=== PATIENT | male | born 1980 | race Caucasian/White ===

== ENCOUNTER 2023-09-17 15:18 | Inpatient (IN) | payer OTHER, SELFPAY ==
[2023-09-17 15:21] VITALS: BP 180/85; PULSE 82; RESP 22; TEMP 36.9; O2SAT 97; BMI 74.8
--- NOTE | 2023-09-17 15:33 | US_ITS ---
The [address] [address] Patient Name: AMENA LAYTON MRN: [id number] date: 1980 Sex: M Assigned Patient Location: ER Current Patient Location: ER Accession/Order Number: [id number] Exam Date: 09/17/2023 16:00 Report Date: 09/17/2023 16:49 At the request of: YORDY BARAHONA Procedure: US scrotum doppler EXAM: US scrotum doppler HISTORY: Swelling, left side COMPARISON: None. TECHNIQUE: Scrotal ultrasound was performed, utilizing grayscale, color, and spectral Doppler. FINDINGS: RIGHT: Testis size: 4.3 x 3 x 2.4 cm. Testis morphology: Homogeneous appearance. No mass. There is a 1 cm anechoic cystic structure inferior to the right testicle. Testis flow: Normal testicular color and spectral Doppler. Flow is symmetric with the contralateral testis. Epididymis: Normal size and morphology. Epididymis flow: Normal epididymal flow. Symmetric flow compared to contralateral epididymis. Scrotal sac: No hydrocele. Varicocele: None. LEFT: Testis size: 4 x 2.3 x 2.4 cm. Testis morphology: Homogeneous appearance. No mass. Testis flow: Normal testicular color and spectral Doppler. Flow is symmetric with the contralateral testis. Epididymis: Normal size and morphology. Epididymis flow: Normal epididymal flow. Symmetric flow compared to contralateral epididymis. Scrotal sac: No hydrocele. Varicocele: None. Additional findings: Thickened and edematous scrotum bilaterally. No gas is noted in subcutaneous region. US/US scrotum doppler IMPRESSION: No evidence of torsion as on the examination.Thickened and edematous scrotum bilaterally Electronically authenticated by: TELLY POWELL Date: 09/17/2023 16:49
--- NOTE | 2023-09-17 15:33 | ED.MALEGU1 ---
HPI - Male Genitourinary General Chief complaint: Urogenital-Male Stated complaint: Testicular Swelling/Pain Time Seen by Provider: 09/17/23 15:23 Source: patient Mode of arrival: walk-in History of Present Illness HPI Narrative: 42-year-old male presents for left hemiscrotal swelling. It started yesterday morning and has gotten worse over time. There is been no trauma. No dysuria or hematuria. He has chronic lymphedema in his legs but has never had swelling in the scrotum. The right side is not painful or swollen. Related Data Home Medications Medication Instructions Recorded Confirmed carvedilol 6.25 mg tablet 6.25 mg PO BID 09/17/23 09/17/23 celecoxib 100 mg capsule 100 mg PO .QOtherDay 09/17/23 09/17/23 Allergies Allergy/AdvReac Type Severity Reaction Status Date / Time No Known Drug Allergies Allergy Verified 09/17/23 15:25 Review of Systems ROS Narrative A ten point review of systems is negative except as noted above. Exam Narrative Exam Narrative: Nurses note and vital signs reviewed and patient is not hypoxic. General: The patient appears well and in no apparent distress. Patient is resting comfortably on cart. Skin: Warm, dry, no pallor noted. There is no rash noted. Head: Normocephalic, atraumatic Eye: Normal conjunctiva, no drainage Ears, Nose, Mouth, and Throat: oral mucosa is moist. Nares patent. Cardiovascular: Regular Rate and Rhythm Respiratory: Patient is in no distress, no accessory muscle use, lungs are clear to auscultation, no wheezing, rales or rhonchi Back: non-tender, no CVA tenderness bilaterally to percussion. GI: Abdomen is morbidly obese, not apparently tender : Left hemiscrotum is swollen and mildly tender in the scrotum is erythematous. No open area or drainage. Musculoskeletal: Lower extremities have chronic lymphedema Neurological: A&O, normal speech Psychiatric: Cooperative Constitutional Vital Signs, click to edit/add: Last Vital Signs Temp 98.5 F 09/17/23 15:21 Pulse 67 09/17/23 17:00 Resp 22 09/17/23 17:00 BP 162/65 H 09/17/23 17:00 Pulse Ox 98 09/17/23 17:00 Course Vital Signs Vital signs: Vital Signs Temperature 98.5 F 09/17/23 15:21 Pulse Rate 82 09/17/23 15:21 Respiratory Rate 22 09/17/23 15:21 Blood Pressure 180/85 H 09/17/23 15:21 Pulse Oximetry 97 09/17/23 15:21 Temperature 98.5 F 09/17/23 15:21 Pulse Rate 67 09/17/23 17:00 Respiratory Rate 22 09/17/23 17:00 Blood Pressure 162/65 H 09/17/23 17:00 Pulse Oximetry 98 09/17/23 17:00 MDM - Male Genitourinary MDM Narrative Medical decision making narrative: Scrotal ultrasound shows normal testicles but thickened scrotal wall. My clinical impression is that he has scrotal cellulitis. He does not have any clinical manifestations of Grazyna's gangrene. He is given IV Zosyn and vancomycin and is being admitted. Findings are discussed with the patient. Differential Diagnosis Differential diagnosis: Likely epididymitis, prostatitis, inguinal hernia and other (Cellulitis, Grazyna's gangrene) Lab Data Attestation: I reviewed the patient's lab results. Labs: Lab Results 09/17/23 Range/Units 16:00 WBC 4.2 (4.0-11.0) 10^3/uL RBC 4.03 L (4.70-6.10) 10^6/uL Hgb 12.5 L (14.0-18.0) g/dL Hct 38.2 L (42.0-54.0) % MCV 94.8 H (80.0-94.0) fL MCH 31.0 (25.9-34.0) pg MCHC 32.7 (29.9-35.2) g/dL RDW 13.2 (11.0-15.0) % Plt Count 65 L (150-450) 10^3/uL MPV 11.1 (9.5-13.5) fL Seg Neuts % (Manual) 74.0 Lymphocytes % (Manual) 12.0 L (20.5-60.0) % Monocytes % (Manual) 10.0 (1.7-12.0) % Eosinophils % (Manual) 3.0 (0.9-7.0) % Basophils % (Manual) 1.0 (0.2-2.0) % Neutrophils # (Manual) 3.10 (1.4-6.5) 10^3/uL Lymphocytes # (Manual) 0.50 L (1.20-3.80) 10^3/uL Monocytes # (Manual) 0.42 (0.30-0.80) 10^3/uL Eosinophils # (Manual) 0.12 (0.00-0.70) 10^3/uL Basophils # (Manual) 0.04 (0.00-0.10) 10^3/uL Sodium 142 (136-145) mmol/L Potassium 3.9 (3.5-5.1) mmol/L Chloride 106 (98-107) mmol/L Carbon Dioxide 29.3 (21.0-32.0) mmol/L Anion Gap 10.6 BUN 7.0 (7.0-18.0) mg/dL Creatinine 0.91 (0.70-1.30) mg/dL Est GFR ( Amer) >60 (>=60) Est GFR (Non-Af Amer) >60 (>=60) BUN/Creatinine Ratio 7.7 Glucose 114 H (74-106) mg/dL Lactate 1.2 (0.4-2.0) mmol/L Calcium 8.5 (8.5-10.1) mg/dL Procalcitonin <0.05 (0.00-0.50) ng/mL Imaging Data Scrotal ultrasound: Radiologist's impression: ITS Impressions Scrotum Ultrasound 09/17/23 15:33 IMPRESSION: No evidence of torsion as on the examination.Thickened and edematous scrotum bilaterally Electronically authenticated by: TELLY POWELL Date: 09/17/2023 16:49 Discharge Plan Discharge Chief Complaint: Urogenital-Male Clinical Impression: Cellulitis, scrotum Patient Disposition: Admitted As Inpatient Time of Disposition Decision: 17:09 Condition: Good Prescriptions / Home Meds: No Action carvedilol 6.25 mg tablet 6.25 mg PO BID celecoxib 100 mg capsule 100 mg PO .QOtherDay Referrals: Physician,Non-Staff, MD [Primary Care Provider] - 1 week
[2023-09-17 16:09] LABS: Hematocrit 38.2 % (42.0-54.0); Hemoglobin 12.5 g/dL (14.0-18.0); Mean Corpuscular HGB Conc 32.7 g/dL (29.9-35.2); Mean Corpuscular Volume 94.8 fL (80.0-94.0); Mean Platelet Volume 11.1 fL (9.5-13.5); Platelet Count 65 10^3/uL (150-450); Red Blood Count 4.03 10^6/uL (4.70-6.10); Red Cell Distribution Width 13.2 % (11.0-15.0); White Blood Count 4.2 10^3/uL (4.0-11.0)
[2023-09-17 16:21] LABS: Anion Gap 10.6; BUN Creatinine Ratio 7.7; Calcium 8.5 mg/dL (8.5-10.1); Carbon Dioxide 29.3 mmol/L (21.0-32.0); Chloride 106 mmol/L (98-107); Estimated GFR (African America >60 (>=60); Estimated GFR (Non-African Ame >60 (>=60); Glucose 114 mg/dL (74-106); Potassium 3.9 mmol/L (3.5-5.1); Sodium 142 mmol/L (136-145)
[2023-09-17 16:31] LABS: Basophils Abs Manual 0.04 10^3/uL (0.00-0.10); Eosinophils Absolute Manual 0.12 10^3/uL (0.00-0.70); Monocytes Absolute Manual 0.42 10^3/uL (0.30-0.80)
[2023-09-17 16:53] LABS: Lactate/Lactic Acid 1.2 mmol/L (0.4-2.0)
[2023-09-17 17:00] VITALS: BP 162/65; PULSE 67; RESP 22; O2SAT 98
[2023-09-17 17:05] LABS: PROCALCITONIN <0.05 ng/mL (0.00-0.50)
[2023-09-17] MEDS: PIPERACILLIN SODIUM/TAZOBACTAM 3.375 GM in 0.9 % SODIUM CHLORIDE 50 ML IV (17:06)
[2023-09-17 17:22] LABS: Bilirubin Urine NEGATIVE (NEGATIVE); Blood Urine NEGATIVE (NEGATIVE); Clarity Urine CLEAR (CLEAR); Color Urine YELLOW (YELLOW); Glucose Urine UA NEGATIVE (NEGATIVE); Ketones Urine NEGATIVE (NEGATIVE); Leukocyte Esterase Urine NEGATIVE (NEGATIVE); Nitrite Urine NEGATIVE (NEGATIVE); Protein Urine NEGATIVE (NEG/TRACE); pH Urine 7.5 (5.0-9.0)
[2023-09-17 17:26] LABS: Urine Microscopic Indicated NO
[2023-09-17] MEDS: VANCOMYCIN HCL 2,000 MG in 0.9 % SODIUM CHLORIDE 500 ML 250 MG IV (18:05)
[2023-09-17 18:49] VITALS: BP 154/71; PULSE 72; RESP 20; TEMP 36.9; O2SAT 95; BMI 74.8
[2023-09-17 19:52] VITALS: BP 156/76; PULSE 73; RESP 18; TEMP 36.9; O2SAT 95
[2023-09-17] MEDS: CARVEDILOL 6.25 MG TABLET PO (21:42)
[2023-09-18] MEDS: PIPERACILLIN SODIUM/TAZOBACTAM 3.375 GM in 0.9 % SODIUM CHLORIDE 50 ML IV ×3 (01:44→20:33)
[2023-09-18] MEDS: VANCOMYCIN HCL 2,000 MG in 0.9 % SODIUM CHLORIDE 500 ML 250 MG IV ×2 (02:26→08:39)
[2023-09-18 04:28] VITALS: BP 148/71; PULSE 71; RESP 18; TEMP 36.7; O2SAT 95
[2023-09-18 06:21] LABS: Anion Gap 11.4; BUN Creatinine Ratio 8.3; Calcium 8.6 mg/dL (8.5-10.1); Carbon Dioxide 27.8 mmol/L (21.0-32.0); Chloride 104 mmol/L (98-107); Estimated GFR (African America >60 (>=60); Estimated GFR (Non-African Ame >60 (>=60); Glucose 112 mg/dL (74-106); Potassium 4.2 mmol/L (3.5-5.1); Sodium 139 mmol/L (136-145)
[2023-09-18 06:51] LABS: Basophils Percent Auto 0.4 % (0.2-2.0); Eosinophils Absolute Auto 0.1 10^3/uL (0.0-0.7); Eosinophils Percent Auto 3.3 % (0.9-7.0); Hematocrit 35.9 % (42.0-54.0); Hemoglobin 11.5 g/dL (14.0-18.0); Immature Granulocytes Abs Auto 0.02 10^3/uL (0.00-0.03); Immature Granulocytes Pct Auto 0.7 % (0.0-0.5); Lymphocytes Absolute Auto 0.4 10^3/uL (1.2-3.8); Mean Corpuscular Hemoglobin 30.6 pg (25.9-34.0); Mean Corpuscular Volume 95.5 fL (80.0-94.0); Mean Platelet Volume 11.6 fL (9.5-13.5); Monocytes Absolute Auto 0.3 10^3/uL (0.3-0.8); Monocytes Percent Auto 12.6 % (1.7-12.0); Neutrophils Absolute Auto 1.8 10^3/uL (1.4-6.5); Platelet Count 56 10^3/uL (150-450); Red Blood Count 3.76 10^6/uL (4.70-6.10); Red Cell Distribution Width 13.2 % (11.0-15.0); White Blood Count 2.7 10^3/uL (4.0-11.0)
[2023-09-18] MEDS: CARVEDILOL 6.25 MG TABLET PO ×2 (08:11→20:33)
[2023-09-18 09:34] LABS: Estimated Average Glucose 105 mg/dL; Glycohemoglobin A1C 5.3 % (4.5-6.2)
--- NOTE | 2023-09-18 10:12 | US_ITS ---
The [place] [id number] Patient Name: AMENA LAYTON MRN: [id number] date: 1980 Sex: M Assigned Patient Location: MS Current Patient Location: MS Accession/Order Number: [id number] Exam Date: 09/18/2023 17:38 Report Date: 09/19/2023 06:27 At the request of: ADRIEN HALEY Procedure: US venous doppler LE BI EXAMINATION: US venous doppler LE BI HISTORY: swelling of BLE, r/o DVT COMPARISON: No relevant comparison available. FINDINGS: REGION: Bilateral lower extremities THROMBI: None. COMPRESSIBILITY: Normal compressibility. FLOW: Normal waveform and antegrade flow between 5 and 20 cm/s. OTHER: None. US/US venous doppler LE BI IMPRESSION: 1. Limited examination due to patient body habitus. 2. No appreciable deep vein thrombus within the right or left lower extremity. Electronically authenticated by: ANGELITO VANESSA Date: 09/19/2023 06:27
--- NOTE | 2023-09-18 10:47 | CM.NOTE ---
Rounds made with Dr. Terry, continue IV antibiotics and no discharge today.
--- NOTE | 2023-09-18 12:12 | P.HP_ITS ---
<Statement entered by Yeison Terry MD - 09/18/23 19:15> Patient seen and examined, agree with assessment and plan below. 42 y/o male to ER with pain and swelling of scrotum. Found cellulitis and admitted for IV antibiotics. Continued swelling. Continue antibiotics. US LE negative for DVT. Diagnosis: 1. Cellulitis scrotum 2. Lymphedema 3. HTN 4. Prediabetes 5. M orbid obesity H&P: HPI History of Present Illness Chief complaint: Testicular Swelling/Pain, Scrotal Cellulitis Narrative: 09/18/23 1008 This is a 42 yo male pt with a PMH as outlined below including chronic BLE lymphedema, autoimmune thrombocytopenia, and HTN; who presented to the ED yesterday afternoon c/o L scrotal swelling x 24 hrs. He denied any trauma or open wounds. He does note chronic lymphedema of his legs but has never had swelling that reached the level of the scrotum in the past. He presented to the ED for further evaluation Workup in the ED was mostly unremarkable. No evidence of leukocytosis or fever, but thrombocytopenia consistent with his chronic levels was noted. A scrotal ultrasound was obtained and this was negative for abnormal testes or torsion, but did note bilateral edematous scrotum. A urine was negative for infection. The ED provider did not have clinical concern for Grazyna's gangrene, but clinically suspected cellulitis. He was admitted as an inpatient to the hospitalist service yesterday evening. At the time of my exam the patient was resting comfortably in bed. He is awake alert and oriented x 3. He denies any fever or chills over the last 3 to 4 days. He did not even note significant tenderness to the left scrotum when he presented to the ED, just significant swelling. On exam the scrotal area remains significantly enlarged bilaterally, with mild erythema and calor. No evidence of open wounds or drainage is noted. He reports mild pain related to swelling - no c/o deep tissue tenderness. We will obtain bilateral venous Doppler study to rule out DVT as possible etiology for his swelling. Otherwise been we will continue with IV antibiotics for now until we begin to see more improvement as the patient remains at risk for Grazyna's gangrene. Due to the patient's high BMI and difficulty obtaining lipid saturation with vancomycin (and thus adequate treatment dosing), we will switch his gram-positive coverage to linezolid. 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 - Immune thrombocytopenic purpura (ICD-10) Morbid obesity due to excess calories ?E66.01 - Morbid (severe) obesity due to excess calories (ICD-10) Prediabetes ?R73.03 - Prediabetes (ICD-10) Lymphedema ?I89.0 - Lymphedema, not elsewhere classified (ICD-10) Hypertension ?I10 - Essential (primary) hypertension (ICD-10) Sleep apnea ?G47.30 - Sleep apnea, unspecified (ICD-10) Surgical History (Updated 09/18/23 @ 12:27 by Suzette Black NP) Arthropathy of knee ?M17.10 - Unilateral primary osteoarthritis, unspecified knee (ICD-10) H/O rhinoplasty ?Z98.890 - Other specified postprocedural states (ICD-10) History of tonsillectomy ?Z90.89 - Acquired absence of other organs (ICD-10) Family History (Updated 09/17/23 @ 18:45 by Olive Madrid) Grandfather Family history of cancer Grandmother Family history of stroke Family history of myocardial infarction Social History (Updated 09/17/23 @ 18:47 by Olive Madrid) Within the past year, how often did you have a drink containing alcohol: monthly or less Within the past year, how many standard drinks containing alcohol did you have on a typical day: 1 or 2 Within the past year, how often did you have six or more drinks on one occasion: less than monthly Total score: 1 Score interpretation: A score less than 4 is consistent with normal alcohol consumption. Smoking status: Former smoker Non-prescribed substance use: denies use Previous occupational history: [employer] Highest level of school completed/degree received: Associate degree: occupational, technical, vocational program Are you now , , , , never or living with a partner: never In a typical week, how many times do you talk on the telephone with family, fr iends, or neighbors: 3 or more times per week How often do you get together with friends or relatives: twice per week How often do you attend religious or confucianism services: never Do you belong to any clubs or organizations such as religious groups unions, fraternal or athletic groups, or school groups: no Total score: 1 Score interpretation: A score of less than or equal to 1 indicates the most socially isolated. Little interest or pleasure in doing things: not at all Feeling down, depressed, or hopeless: not at all Feel stressed/tense/nervous/anxious/difficulty sleeping: not at all Do you think of yourself as: straight/heterosexual Gender Identity: male Meds Home Medications and Allergies Home Medications Medication Instructions Recorded Confirmed Type carvedilol 6.25 mg tablet 6.25 mg PO BID 09/17/23 09/17/23 History celecoxib 100 mg capsule 100 mg PO .QOtherDay 09/17/23 09/17/23 History Allergies Allergy/AdvReac Type Severity Reaction Status Date / Time No Known Drug Allergies Allergy Verified 09/17/23 15:25 Exam Constitutional Vital Signs, click to edit/add: Last Vital Signs Temp 98.1 F 09/18/23 04:28 Pulse 71 09/18/23 04:28 Resp 18 09/18/23 04:28 BP 148/71 H 09/18/23 04:28 Pulse Ox 95 09/18/23 04:28 O2 Del Method Room Air 09/18/23 04:28 Common normals: no apparent distress, oriented x3, alert and well nourished General appearance: cooperative Nutritional appearance: obese morbidly obese Orientation/consciousness: Yes awake HENMT Common normals: normocephalic, head/scalp atraumatic, hearing grossly normal bilaterally, external nose normal and moist oral mucous membranes Eye Common normals: PERRL, EOMs intact bilaterally, conjunctivae normal and no scleral icterus Alignment: alignment normal Eyelid: eyelids normal Neck & C-Spine Common normals: full ROM, supple and no JVD Lymph Lymphatic: lymphedema (BLE, chronic. Venous stasis dermatitis BLE) Chest Common normals: inspection of chest normal Chest: symmetrical chest wall rise Respiratory Common normals: normal respiratory effort, no retractions, no use of accessory muscles and clear to auscultation bilaterally Effort & inspection: able to speak in complete sentences Cardio Common normals: no JVD, regular rate, regular rhythm, S1 normal heart sound, S2 normal heart sound, no gallops, no clicks, no murmurs, no rub and peripheral pulses 2+ throughout GI Common normals: Normal to inspection, nondistended, normoactive bowel sounds present, soft to palpation, non-tender, no hepatosplenomegaly, no masses and no bruits Bladder/kidney exam: bladder normal to palpation Scrotum: scrotal swelling (Mild erythema/calor) Scrotal swelling laterality: bilateral Extremity Common normals: normal capillary refill General: normal exam except as noted; no clubbing and no cyanosis Neuro Telly Coma Scale: GCS not evaluated Common normals: CN's II-XII intact bilaterally, moves all extremities, no focal motor deficits and no sensory deficits noted Speech: speech normal Motor exam: strength 5/5 throughout Psych Common normals: mental status grossly normal, thought process normal, affect normal and activity/motor behavior normal Results Labs Labs: Short CBC 09/17/23 09/18/23 Range/Units 16:00 06:34 WBC 4.2 2.7 L (4.0-11.0) 10^3/uL Hgb 12.5 L 11.5 L (14.0-18.0) g/dL Hct 38.2 L 35.9 L (42.0-54.0) % Plt Count 65 L 56 L (150-450) 10^3/uL BMP 09/17/23 09/18/23 16:00 05:13 Sodium 142 139 Potassium 3.9 4.2 Chloride 106 104 Carbon Dioxide 29.3 27.8 BUN 7.0 7.0 Creatinine 0.91 0.84 Glucose 114 H 112 H Calcium 8.5 8.6 Urine 09/17/23 Range/Units 16:55 Urine Color Yellow (YELLOW) Urine Clarity Clear (CLEAR) Urine pH 7.5 (5.0-9.0) Ur Specific [place] 1.020 (1.005-1.025) Urine Protein Negative (NEG/TRACE) mg/dL Urine Glucose (UA) Negative (NEGATIVE) mg/dL Pulse Oximetry Attestation: I have reviewed the pertinent pulse oximetry results. Assessment and Plan Assessment and Plan (1) Cellulitis, scrotum: Assessment and Plan: ACUTE * Adm inpatient * Continue IVPB Zosyn for broad gram neg/anaerobic coverage * Change IVPB Vancomycin (d/t pt's morbid obesity and difficulty reaching lipid solubility/therapeutic Vanco dosing levels), to IVPB Linezolid for broad gram pos coverage * No clinical concern for Grazyna's gangrene in absence of significant tenderness/leukocytosis and relatively normal scrotal US, but pt remains at risk * Scrotal US neg for abscess, necrotizing fasciitis, or testicular abnormality * UA neg for acute cystitis * BC x 2 obtained in ED - pending * Lasix 20 mg IVP x 2 doses today to reduce BLE & scrotal swelling * Obtain BLE venous doppler to r/o DVTs as source of swelling * Low clinical suspicion, especially in setting of thrombocytopenia * CBC, CMP daily (2) Autoimmune thrombocytopenia: Assessment and Plan: CHRONIC * Stable at baseline * Reportedly around 50,000 for several years * Follows outpatient with Dr Lashawn Patton, oncologist (3) Morbid obesity due to excess calories: Assessment and Plan: CHRONIC * Pt is very tall at 6'8 , but is still morbidly obese (BMI 75) * Weight loss advised (4) Prediabetes: Assessment and Plan: CHRONIC * A1C today at 5.3, pre-diabetes level * Recommend outpatient monitoring (5) Lymphedema: Assessment and Plan: CHRONIC * Continue home compression wraps as tolerated * Venous Doppler today to r/o concurrent DVTs (6) Hypertension: Assessment and Plan: CHRONIC * Continue home Coreg (7) Sleep apnea: Assessment and Plan: CHRONIC * OK to use home CPAP
[2023-09-18] MEDS: FUROSEMIDE 20 MG/2 ML VIAL IVP ×2 (12:42→20:33)
[2023-09-18] MEDS: LINEZOLID IN DEXTROSE 5% 600 MG/300 ML PIGGYBACK 300 MG IV (12:42)
[2023-09-18 13:42] VITALS: BP 150/82; PULSE 74; RESP 20; TEMP 36.6; O2SAT 91
[2023-09-18 20:33] VITALS: BP 182/73
[2023-09-18 22:00] VITALS: BP 162/73; PULSE 65; RESP 18; TEMP 36.6; O2SAT 93
[2023-09-19] MEDS: LINEZOLID IN DEXTROSE 5% 600 MG/300 ML PIGGYBACK 300 MG IV ×2 (00:45→12:02)
[2023-09-19] MEDS: PIPERACILLIN SODIUM/TAZOBACTAM 3.375 GM in 0.9 % SODIUM CHLORIDE 50 ML IV ×3 (04:45→20:20)
[2023-09-19 04:56] VITALS: BP 168/77; PULSE 70; RESP 16; TEMP 36.4; O2SAT 94
[2023-09-19 05:37] LABS: Basophils Percent Auto 0.6 % (0.2-2.0); Eosinophils Absolute Auto 0.1 10^3/uL (0.0-0.7); Eosinophils Percent Auto 3.8 % (0.9-7.0); Hematocrit 37.6 % (42.0-54.0); Hemoglobin 12.2 g/dL (14.0-18.0); Immature Granulocytes Abs Auto 0.04 10^3/uL (0.00-0.03); Immature Granulocytes Pct Auto 1.2 % (0.0-0.5); Lymphocytes Absolute Auto 0.5 10^3/uL (1.2-3.8); Lymphocytes Percent Auto 15.5 % (20.5-60.0); Mean Corpuscular HGB Conc 32.4 g/dL (29.9-35.2); Mean Corpuscular Volume 95.4 fL (80.0-94.0); Mean Platelet Volume 11.5 fL (9.5-13.5); Monocytes Absolute Auto 0.4 10^3/uL (0.3-0.8); Monocytes Percent Auto 11.4 % (1.7-12.0); Neutrophils Absolute Auto 2.3 10^3/uL (1.4-6.5); Neutrophils Percent Auto 67.5 % (43.0-75.0); Platelet Count 65 10^3/uL (150-450); Red Blood Count 3.94 10^6/uL (4.70-6.10); Red Cell Distribution Width 13.2 % (11.0-15.0); White Blood Count 3.4 10^3/uL (4.0-11.0)
[2023-09-19 05:48] LABS: BUN Creatinine Ratio 7.6; Calcium 8.6 mg/dL (8.5-10.1); Carbon Dioxide 29.7 mmol/L (21.0-32.0); Chloride 105 mmol/L (98-107); Estimated GFR (African America >60 (>=60); Estimated GFR (Non-African Ame >60 (>=60); Glucose 122 mg/dL (74-106); Potassium 3.7 mmol/L (3.5-5.1); Sodium 142 mmol/L (136-145)
[2023-09-19 08:36] LABS: Vancomycin Trough 7.5 ug/mL (5.0-20.0)
[2023-09-19] MEDS: CARVEDILOL 6.25 MG TABLET PO ×2 (09:36→20:20)
--- NOTE | 2023-09-19 10:33 | CM.NOTE ---
Rounds made with Dr. Terry, no discharge today. Continue IV antibiotics and pt will get another dose of IV lasix today for diuresis.
[2023-09-19] MEDS: AMMONIUM LACTATE 226 GM BOTTLE 1 APPLIC TOPICAL ×2 (10:38→20:20)
[2023-09-19] MEDS: FUROSEMIDE 20 MG/2 ML VIAL IVP (10:38)
[2023-09-19 13:22] VITALS: BP 142/71; PULSE 65; RESP 18; TEMP 36.8; O2SAT 92
--- NOTE | 2023-09-19 13:22 | P.PN_ITS ---
<Statement entered by Yeison Terry MD - 09/19/23 19:34> Patient seen and examined, agree with assessment and plan below. Patient unchanged overnight. Continues to have edema and swelling in scrotum. Mild pain and discomfort. Afebrile. WBC stable. Remains on IV antibiotics. Diagnosis: 1. Cellulitis scrotum 2. Lymphedema 3. HTN 4. Prediabetes 5. Morbid obesity Progress Note: Subjective Subjective Interval history: 09/19/23 0940 The patient is resting in bed. He reports his scrotal pain is significantly improved, but he continues to note significant scrotal swelling. He had excellent urinary output after IV Lasix administration, but this did not make an appreciable difference to his lymphedema and scrotal swelling. He is concerned about discharging today due to difficulty ambulating with the scrotal swelling and possible chafing injury to the scrotum. The patient will remain in the hospital for 1 more day for IV antibiotics and further IV Lasix administration. The venous Doppler study of the bilateral lower extremities from yesterday was negative for acute DVT. Exam Constitutional Vital Signs, click to edit/add: Last Vital Signs Temp 97.6 F 09/19/23 04:56 Pulse 70 09/19/23 04:56 Resp 16 09/19/23 04:56 BP 168/77 H 09/19/23 04:56 Pulse Ox 94 L 09/19/23 04:56 O2 Del Method Room Air 09/19/23 04:56 Common normals: no apparent distress, oriented x3 and alert General appearance: cooperative Orientation/consciousness: Yes awake HENNV Common normals: normocephalic, head/scalp atraumatic and hearing grossly normal bilaterally Eye Common normals: PERRL, EOMs intact bilaterally, conjunctivae normal and no scleral icterus General eye: normal appearance of both eyes Chest Common normals: inspection of chest normal Chest: symmetrical chest wall rise Respiratory Common normals: normal respiratory effort, no use of accessory muscles and clear to auscultation bilaterally Effort & inspection: able to speak in complete sentences Cardio Common normals: regular rate, regular rhythm, S1 normal heart sound, S2 normal heart sound and peripheral pulses 2+ throughout Heart sounds: murmur (HSM 2/6) GI Common normals: Normal to inspection, nondistended, normoactive bowel sounds present, soft to palpation, non-tender and no hepatosplenomegaly Bladder/kidney exam: bladder normal to palpation Scrotum: scrotal swelling (w/ mild erythema/calor) Scrotal swelling laterality: bilateral Extremity Common normals: normal to inspection and no calf tenderness General: no clubbing, no cyanosis and no edema Neuro Common normals: CN's II-XII intact bilaterally, moves all extremities, no focal motor deficits and no sensory deficits noted Psych Common normals: mental status grossly normal Progress Note: Objective Labs Labs: Short CBC 09/19/23 Range/Units 04:40 WBC 3.4 L (4.0-11.0) 10^3/uL Hgb 12.2 L (14.0-18.0) g/dL Hct 37.6 L (42.0-54.0) % Plt Count 65 L (150-450) 10^3/uL BMP 09/19/23 04:40 Sodium 142 Potassium 3.7 Chloride 105 Carbon Dioxide 29.7 BUN 7.0 Creatinine 0.92 Glucose 122 H Calcium 8.6 Progress Note: A&P Assessment and Plan (1) Cellulitis, scrotum: Assessment and Plan: ACUTE * Continue IVPB Zosyn for broad gram neg/anaerobic coverage * Continue IVPB Linezolid for broad gram pos coverage * No current clinical concern for Grazyna's gangrene in absence of significant tenderness/leukocytosis and relatively normal scrotal US, but pt remains at risk * Lasix 20 mg IVP x 1 dose - monitor output and for reduced swelling * CBC, CMP daily * Scrotal US neg for abscess, necrotizing fasciitis, or testicular abnormality * UA neg for acute cystitis * BC x 2 obtained in ED - pending * BLE venous doppler neg for DVT (2) Autoimmune thrombocytopenia: Assessment and Plan: CHRONIC * Remains stable at baseline * Reportedly around 50,000 for several years * Follows outpatient with Dr Lashawn Patton, oncologist. Defer to outpatient management (3) Morbid obesity due to excess calories: Assessment and Plan: CHRONIC * Pt is very tall at 6'8 , but is still morbidly obese (BMI 75) * Weight loss advised (4) Prediabetes: Assessment and Plan: CHRONIC * A1C today at 5.3, pre-diabetes level * Recommend outpatient monitoring (5) Lymphedema: Assessment and Plan: CHRONIC * Continue home compression wraps as tolerated * Venous Doppler BLE neg for DVTs - 09/18/23 (6) Hypertension: Assessment and Plan: CHRONIC * Continue home Coreg (7) Sleep apnea: Assessment and Plan: CHRONIC * OK to use home CPAP
[2023-09-19 15:07] VITALS: BP 129/73; PULSE 69
[2023-09-19] MEDS: ACETAMINOPHEN 500 MG TABLET 1000 MG PO (15:09)
[2023-09-19 20:25] VITALS: BP 170/75; PULSE 65; RESP 18; TEMP 36.6; O2SAT 93
[2023-09-20] MEDS: LINEZOLID IN DEXTROSE 5% 600 MG/300 ML PIGGYBACK 300 MG IV (00:25)
[2023-09-20] MEDS: PIPERACILLIN SODIUM/TAZOBACTAM 3.375 GM in 0.9 % SODIUM CHLORIDE 50 ML IV (03:54)
[2023-09-20 04:03] VITALS: BP 174/83; PULSE 68; RESP 18; TEMP 36.4; O2SAT 93
[2023-09-20 04:37] LABS: Basophils Percent Auto 0.8 % (0.2-2.0); Eosinophils Absolute Auto 0.1 10^3/uL (0.0-0.7); Eosinophils Percent Auto 3.9 % (0.9-7.0); Hematocrit 38.1 % (42.0-54.0); Hemoglobin 12.1 g/dL (14.0-18.0); Immature Granulocytes Pct Auto 2.8 % (0.0-0.5); Lymphocytes Absolute Auto 0.6 10^3/uL (1.2-3.8); Lymphocytes Percent Auto 17.3 % (20.5-60.0); Mean Corpuscular HGB Conc 31.8 g/dL (29.9-35.2); Mean Corpuscular Hemoglobin 30.1 pg (25.9-34.0); Mean Corpuscular Volume 94.8 fL (80.0-94.0); Mean Platelet Volume 11.4 fL (9.5-13.5); Monocytes Absolute Auto 0.4 10^3/uL (0.3-0.8); Monocytes Percent Auto 11.7 % (1.7-12.0); Neutrophils Absolute Auto 2.3 10^3/uL (1.4-6.5); Neutrophils Percent Auto 63.5 % (43.0-75.0); Platelet Count 77 10^3/uL (150-450); Red Blood Count 4.02 10^6/uL (4.70-6.10); Red Cell Distribution Width 13.1 % (11.0-15.0); White Blood Count 3.6 10^3/uL (4.0-11.0)
[2023-09-20 04:46] LABS: Anion Gap 8.1; Calcium 8.5 mg/dL (8.5-10.1); Carbon Dioxide 31.9 mmol/L (21.0-32.0); Chloride 106 mmol/L (98-107); Estimated GFR (African America >60 (>=60); Estimated GFR (Non-African Ame >60 (>=60); Glucose 112 mg/dL (74-106); Sodium 142 mmol/L (136-145)
[2023-09-20 09:24] VITALS: BP 160/72; PULSE 70; TEMP 36.4; O2SAT 93
[2023-09-20] MEDS: CARVEDILOL 6.25 MG TABLET PO (09:45)
[2023-09-20] MEDS: AMMONIUM LACTATE 226 GM BOTTLE 1 APPLIC TOPICAL (09:46)
--- NOTE | 2023-09-20 11:15 | P.DS_ITS ---
<Statement entered by Yeison Terry MD - 09/20/23 19:15> Patient seen and examined, agree with assessment and plan below. Presented with pain and swelling to scrotum and found cellulitis. Admitted for IV antibiotics. Resumed home medication. Gradually improved in hospital. Gave dose IV lasix for edema. WBC stable and afebrile. Discharged with oral antibiotics. Diagnosis: 1. Cellulitis scrotum 2. Lymphedema 3. HTN 4. Prediabetes 5. Morbid obesity DS: Providers Provider Date of admission: 09/17/23 18:19 Primary care physician: Non-Staff Physician, Discharging clinician: Suzette Black DS: Diagnosis Discharge Diagnosis (1) Cellulitis, scrotum: (2) Autoimmune thrombocytopenia: (3) Morbid obesity due to excess calories: (4) Prediabetes: (5) Lymphedema: (6) Hypertension: (7) Sleep apnea: DS: Summary Hospital Course Hospital Course: The patient was admitted with scrotal cellulitis and associated severe scrotal swelling. He was treated with IVPB Zosyn and Zyvox. Due to the persistent nature of the scrotal swelling, he was given several doses of IVP Lasix with very good urine output. His scrotal swelling is improving but is not fully resolved at the time of discharge. The scrotal erythema is resolving and there is no tenderness or warmth at the time of discharge. He remained afebrile and without leukocytosis throughout his admission. As the patient's condition is improved, he is being discharged home in stable condition. He has been prescribed Augmentin and Bactrim for a further 7 days (total 10-day course). He may continue to use Lac-Hydrin for peeling skin of the scrotum if needed (2/2 swelling). He should follow up with his PCP in 3-5 days. Time Spent with Patient Time attestation: Total time spent providing and/or coordinating discharge services: Time spent: greater than 30 minutes Specific discharge activities: Physical exam, discussion of discharge plan, questions answered. Exam Constitutional Vital Signs, click to edit/add: Last Vital Signs Temp 97.6 F 09/20/23 09:24 Pulse 70 09/20/23 09:24 Resp 18 09/20/23 04:03 BP 160/72 H 09/20/23 09:24 Pulse Ox 93 L 09/20/23 09:24 O2 Del Method Room Air 09/20/23 09:24 Common normals: no apparent distress, oriented x3 and alert General appearance: cooperative Orientation/consciousness: Yes awake HENMT Common normals: normocephalic and head/scalp atraumatic Eye Common normals: PERRL, EOMs intact bilaterally, conjunctivae normal and no scleral icterus Conjunctiva: conjunctiva(e) normal Pupil: PERRL Neck & C-Spine Common normals: no JVD Lymph Lymphatic: lymphedema (BLE, greatest on L. Chronic) Chest Common normals: inspection of chest normal Respiratory Common normals: normal respiratory effort, no use of accessory muscles and clear to auscultation bilaterally Effort & inspection: able to speak in complete sentences and symmetric chest movement Cardio Common normals: no JVD, regular rate, regular rhythm, S1 normal heart sound, S2 normal heart sound, no murmurs and peripheral pulses 2+ throughout GI Common normals: Normal to inspection, nondistended, normoactive bowel sounds present, soft to palpation and non-tender Bladder/kidney exam: bladder normal to palpation Scrotum: scrotal swelling Scrotal swelling laterality: bilateral (Improving) and other (Mild erythema, no calor) Extremity Common normals: normal to inspection, full ROM, normal capillary refill and no pedal edema General: no clubbing and no cyanosis Neuro Common normals: moves all extremities, no focal motor deficits and no sensory deficits noted Sensorium/orientation: awake and alert Speech: speech normal Psych Common normals: mental status grossly normal and activity/motor behavior normal DS: Data Data Completed and Pending Labs on day of discharge: Labs from last 24 hours 09/20/23 03:56 WBC 3.6 L RBC 4.02 L Hgb 12.1 L Hct 38.1 L MCV 94.8 H MCH 30.1 MCHC 31.8 RDW 13.1 Plt Count 77 L MPV 11.4 Neut % (Auto) 63.5 Lymph % (Auto) 17.3 L [place] % (Auto) 11.7 Eos % (Auto) 3.9 Baso % (Auto) 0.8 Neut # (Auto) 2.3 Lymph # (Auto) 0.6 L [place] # (Auto) 0.4 Eos # (Auto) 0.1 Baso # (Auto) 0.0 Abs Immat Gran (auto) 0.10 H Imm/Tot Granulo (auto) 2.8 H Sodium 142 Potassium 4.0 Chloride 106 Carbon Dioxide 31.9 Anion Gap 8.1 BUN 9.0 Creatinine 1.00 Est GFR ( Amer) >60 Est GFR (Non-Af Amer) >60 BUN/Creatinine Ratio 9.0 Glucose 112 H Calcium 8.5 Preliminary micro results at discharge 09/17/23 16:50 - Preliminary Blood NO GROWTH AT 36-48 HOURS. FINAL TO FOLLOW. 09/17/23 16:45 Blood Culture Result 1 - Preliminary Blood NO GROWTH AT 36-48 HOURS. FINAL TO FOLLOW. Imaging Venous US: Radiologist's impression: IMPRESSION: 1. Limited examination due to patient body habitus. 2. No appreciable deep vein thrombus within the right or left lower extremity. Discharge Plan Discharge Disposition: Home, Self-Care Condition: Good Discharge Medications: New amoxicillin-pot clavulanate 1,000-62.5 mg tablet extended release 12 hr 1 tab PO BID 7 Days Qty: 14 0RF sulfamethoxazole-trimethoprim [Bactrim DS] 800-160 mg tablet 1 tab PO BID 7 Days Qty: 14 0RF ammonium lactate 12 % Lotion 1 applic topical BID Qty: 0 0RF Continued carvedilol 6.25 mg tablet 6.25 mg PO BID celecoxib 100 mg capsule 100 mg PO .QOtherDay Activity: increase activity as tolerated Diet: advance to your usual diet Patient Instructions: Orchiectomy (DC), Orchiectomy (IP), Orchiectomy (PRE) Activity Restrictions/Additional Instructions: - Take home probiotic twice daily x 10 days - May use Lac-Hydrin lotion twice daily as needed for dry skin - OK to return to work on 09/25/23 Forms: Portal Instructions Follow Up Appointments: @ 9:30am with Dr. Schwab [phone] Discharge Date/Time: 09/20/23 13:52
--- NOTE | 2023-09-20 11:21 | CM.NOTE ---
Rounds made with Dr. Terry, pt will discharge to home on oral antibiotics and f/u with primary care in one week.
--- NOTE | 2023-09-20 12:17 | PC.NURSE ---
Patient's PICC line dressing saturated with blood. Non Licensed Nuclear Plant Operator cleaned up and placed new pressure dressing and will keep patient for another hour before discahrging to make sure he does not bleed anymore.
[2023-09-20 13:21] VITALS: BP 154/77; PULSE 58; RESP 18; TEMP 36.7; O2SAT 95
== END 2023-09-20 13:52 | disposition home or self-care (01) | DRG 728 ==
LOC: ER 17:11 → MS 18:24
PROVIDERS: Admitting Provider Family Medicine; Emergency Provider Emergency Medicine; Visit Provider Family Medicine
DX: N49.2 Inflammatory disorders of scrotum (principal); Z68.45 Body mass index [BMI] 70 or greater, adult; D69.3 Immune thrombocytopenic purpura; E66.01 Morbid (severe) obesity due to excess calories; R73.03 Prediabetes; I89.0 Lymphedema, not elsewhere classified; I10 Essential (primary) hypertension; G47.30 Sleep apnea, unspecified
CPT/HCPCS: 36415; 36569; 36592; 76870; 80048; 80202; 81001; 81003; 83036; 83605; 84145; 85007; 85025; 85027; 87040; 93970; 93976; 96365; 96366; 96367; 96368; 96375; 96376; 99285; C1887; J1940; J2020; J2543; J3370

== ENCOUNTER 2024-06-19 11:23 | Observation (INO) | payer OTHER, SELFPAY ==
[2024-06-19 11:28] VITALS: BP 160/80; PULSE 76; TEMP 36.7; O2SAT 98; BMI 88.9
[2024-06-19 11:47] VITALS: O2SAT 98
[2024-06-19] MEDS: MORPHINE SULFATE 4 MG/ML VIAL IV (13:07)
--- NOTE | 2024-06-19 13:28 | SWNOTE1 ---
LAWRENCE consulted to come down to ED. Pt is a bariatric pt, weighing near 700 pounds, who can't care for himself and is having back pain. LAWRENCE met with pt and mother in room. Pt voiced for about 2 weeks he has been getting weaker and not able to ambulate. He has crutches and a walker that he was using, but has not been able to. Pt voiced that the only time he gets up is to use the restroom, number 2. He stated he pees in a garbage can and his room-mate dumps it out for him. He has never been to a nursing facility before. He voiced that he needs to as he can't care for himself. Pt's mother is not able to move in with him and he is not able to move in with her. SW expressed to pt and his mother there is a good chance that he may have to go to a [facility], [facility] due to the facilities around here not being able to take his weight. LAWRENCE stated that there is one facility in [place] that is bariatric, but SW has to check if they take his insurance and if they take his weight. SW also advised them that the doctor will have to have a medical reason to admit patient. Pt will not be able to go from ED to facility due to his insurance needing to approve him. They voiced understanding. LAWRENCE called admissiosn at [place] and they do take insurance and his weight. She asked SW and pt some questions and provided answers. Admissions requested SW send over face sheet and any other information. LAWRENCE updated the doctor and nurse. LAWRENCE attempted to fax face sheet and nursing notes several times, but it did not go through. LAWRENCE called admissions back and requested that SW send by email. LAWRENCE sent to email securely.
--- NOTE | 2024-06-19 14:12 | ED_ITS ---
HPI HPI - General Adult General Chief complaint: Back Pain/Injury Stated complaint: BACK PAIN Time Seen by Provider: 06/19/24 11:29 Source: patient Mode of arrival: ambulance Limitations: no limitations History of Present Illness HPI narrative: Patient presents ED complaining of back pain. He is approximately 700 pounds. He has a history of back pain but it has been worsening lately. He saw his primary doctor who called him in a muscle relaxer for the muscle spasms in the back but it has not been helping. No loss of sensation no loss of bowel or bladder habits and patient is still able to ambulate he is just having a lot of difficulty due to the pain. He said the way that he has to stand up and return he has been having to put more weight on the 1 leg and now he is getting in creased pain. Patient has chronic lymphedema. He suffers from morbid obesity. He denies diabetes. He is also already on a steroid for this back pain. No fevers nausea or vomiting no abdominal pain. Denies IV drug abuse. He came today because he said he just cannot take care of himself anymore. He states he is peeing into a bucket off the side of the bed and is not really able to shower or get around or take care of himself. He also came because he was not given any pain medication for the back. The muscle relaxers do not seem to be helping much. Related Data Home Medications ?Medication ?Instructions ?Recorded ?Confirmed carvedilol 12.5 mg tablet 12.5 mg PO BID 06/19/24 06/19/24 celecoxib 100 mg capsule (Celebrex) 100 mg PO DAILY 06/19/24 06/19/24 lisinopril 20 1 tab PO DAILY 06/19/24 06/19/24 mg-hydrochlorothiazide 12.5 mg tablet prednisone 10 mg tablet 10 mg PO DAILY 06/19/24 06/19/24 tizanidine 4 mg tablet 4 mg PO Q12H PRN spasms 06/19/24 06/19/24 Allergies Allergy/AdvReac Type Severity Reaction Status Date / Time No Known Drug Allergies Allergy Verified 09/17/23 15:25 Opioid HPI Opioid Management Most Recent Opioid Data: Last Pain Scale 2 06/19/24 15:10 06/19/24 Last ED Pain Assessment 06/19/24 11:47 Last MAR Pain Assessment 06/19/24 13:07 Review of Systems ROS Status of ROS 10 or more systems reviewed and unremark able except as noted in history and below [facility] History (Updated 06/19/24 @ 11:52 by Alie Thrasher RN) Back pain ?M54.9 - Dorsalgia, unspecified (ICD-10) Autoimmune thrombocytopenia ?D69.3 - Immune thrombocytopenic purpura (ICD-10) Morbid obesity due to excess calories ?E66.01 - Morbid (severe) obesity due to excess calories (ICD-10) Prediabetes ?R73.03 - Prediabetes (ICD-10) Lymphedema ?I89.0 - Lymphedema, not elsewhere classified (ICD-10) Hypertension ?I10 - Essential (primary) hypertension (ICD-10) Sleep apnea ?G47.30 - Sleep apnea, unspecified (ICD-10) Surgical History (Updated 09/18/23 @ 12:27 by Suzette Black NP) Arthropathy of knee ?M17.10 - Unilateral primary osteoarthritis, unspecified knee (ICD-10) H/O rhinoplasty ?Z98.890 - Other specified postprocedural states (ICD-10) History of tonsillectomy ?Z90.89 - Acquired absence of other organs (ICD-10) Family History (Updated 09/17/23 @ 18:45 by Olive Madrid) Grandfather Family history of cancer Grandmother Family history of stroke Family history of myocardial infarction Social History (Updated 09/17/23 @ 18:47 by Olive Madrid) Within the past year, how often did you have a drink containing alcohol: monthly or less Within the past year, how many standard drinks containing alcohol did you have on a typical day: 1 or 2 Within the past year, how often did you have six or more drinks on one occasion: less than monthly Total score: 1 Score interpretation: A score less than 4 is consistent with normal alcohol consumption. Smoking status: Former smoker Non-prescribed substance use: denies use Previous occupational history: [employer] Highest level of school completed/degree received: Associate degree: occupational, technical, vocational program Are you now , , , , never or living with a partner: never In a typical week, how many times do you talk on the telephone with family, friends, or neighbors: 3 or more times per week How often do you get together with friends or relatives: twice per week How often do you attend muslim or taoism services: never Do you belong to any clubs or organizations such as muslim groups unions, fraternal or athletic groups, or school groups: no Total score: 1 Score interpretation: A score of less than or equal to 1 indicates the most socially isolated. Little interest or pleasure in doing things: not at all Feeling down, depressed, or hopeless: not at all Feel stressed/tense/nervous/anxious/difficulty sleeping: not at all Do you think of yourself as: straight/heterosexual Gender Identity: male Exam Narrative Exam Narrative: General: alert, no acute distress Cardiovascular: regular rate and rhythm, normal peripheral perfusion. Respiratory: Lungs CTA, respirations non labored. Abdomen soft nontender nondistended. Morbid obesity Extremities: no deformity, no trauma. Normal distal pulses and sensation. Chronic severe lymphedema bilateral lower extremities worse on the left. Normal push and pull on bilateral feet. Pain in the right lumbar paraspinal area. Neurological: oriented x 4, LOC appropriate for age. Constitutional Vital Signs, click to edit/add: Last Vital Signs Temp 98.1 F 06/19/24 11:28 Pulse 76 06/19/24 11:28 Resp 18 06/19/24 11:28 BP 160/80 H 06/19/24 11:28 Pulse Ox 98 06/19/24 11:47 O2 Del Method Room Air 06/19/24 11:47 Course Vital Signs Vital signs: Vital Signs Temperature 98.1 F 06/19/24 11:28 Pulse Rate 76 06/19/24 11:28 Respiratory Rate 18 06/19/24 11:28 Blood Pressure 160/80 H 06/19/24 11:28 Pulse Oximetry 98 06/19/24 11:28 Oxygen Delivery Method Room Air 06/19/24 11:28 Temperature 98.1 F 06/19/24 11:28 Pulse Rate 76 06/19/24 11:28 Respiratory Rate 18 06/19/24 11:28 Blood Pressure 160/80 H 06/19/24 11:28 Pulse Oximetry 98 06/19/24 11:47 Oxygen Delivery Method Room Air 06/19/24 11:47 Medical Decision Making MDM Narrative Medical decision making narrative: Patient is having back pain and is unable to care for himself anymore at home. He said he is having to urinate into a bucket off the side of his bed. He cannot shower. Patient will need to be placed in a care facility. I spoke to case management who said there are beds available at [facility] and they do take his insurance. They have to do an onsite evaluation, PT OT clear everything through the insurance before he can be accepted there. This cannot get done today while the patient is in the ER. I spoke to Dr. Rubalcava who will admit the patient for the back pain and inability to care for self and await continued evaluation for placement. Patient and family are comfortable with care plan Differential Diagnosis Differential Diagnosis: Back pain, obesity, unable to care for self Lab Data Lab results reviewed: Yes I reviewed the patient's lab results Labs: Lab Results 06/19/24 Range/Units 11:37 WBC 2.9 L (4.0-11.0) 10^3/uL RBC 4.39 L (4.70-6.10) 10^6/uL Hgb 13.5 L (14.0-18.0) g/dL Hct 40.2 L (42.0-54.0) % MCV 91.6 (80.0-94.0) fL MCH 30.8 (25.9-34.0) pg MCHC 33.6 (29.9-35.2) g/dL RDW 14.2 (11.0-15.0) % Plt Count 54 L (150-450) 10^3/uL MPV 12.8 (9.5-13.5) fL Neut % (Auto) 64.4 (43.0-75.0) % Lymph % (Auto) 20.3 L (20.5-60.0) % [place] % (Auto) 12.2 H (1.7-12.0) % Eos % (Auto) 2.1 (0.9-7.0) % Baso % (Auto) 0.3 (0.2-2.0) % Neut # (Auto) 1.8 (1.4-6.5) 10^3/uL Lymph # (Auto) 0.6 L (1.2-3.8) 10^3/uL [place] # (Auto) 0.4 (0.3-0.8) 10^3/uL Eos # (Auto) 0.1 (0.0-0.7) 10^3/uL Baso # (Auto) 0.0 (0.0-0.1) 10^3/uL Abs Immat Gran (auto) 0.02 (0.00-0.03) 10^3/uL Imm/Tot Granulo (auto) 0.7 H (0.0-0.5) % Sodium 138 (136-145) mmol/L Potassium 4.5 (3.5-5.1) mmol/L Chloride 102 (98-107) mmol/L Carbon Dioxide 25.9 (21.0-32.0) mmol/L Anion Gap 14.6 BUN 18.0 (7.0-18.0) mg/dL Creatinine 0.97 (0.70-1.30) mg/dL Est GFR ( Amer) >60 (>=60 mL/min/1.73m^2) Est GFR (Non-Af Amer) >60 (>=60 mL/min/1.73m^2) BUN/Creatinine Ratio 18.6 Glucose 102 (74-106) mg/dL Calcium 9.0 (8.5-10.1) mg/dL Total Bilirubin 1.6 H (0.2-1.0) mg/dL AST 20 (15-37) U/L ALT 23 (16-63) U/L Alkaline Phosphatase 62 (46-116) U/L Total Protein 7.0 (6.4-8.2) g/dL Albumin 3.0 L (3.4-5.0) g/dL Globulin 4.0 g/dL Albumin/Globulin Ratio 0.8 Discharge Plan Discharge Chief Complaint: Back Pain/Injury Time of Disposition Decision: 17:09 Prescriptions / Home Meds: No Action tizanidine 4 mg tablet 4 mg PO Q12H PRN (Reason: spasms) lisinopril-hydrochlorothiazide 20-12.5 mg tablet 1 tab PO DAILY carvedilol 12.5 mg tablet 12.5 mg PO BID Rx Instructions: must administer with a meal/food celecoxib [Celebrex] 100 mg capsule 100 mg PO DAILY prednisone 10 mg tablet 10 mg PO DAILY Print Language: Arabic
--- NOTE | 2024-06-19 15:00 | SWNOTE1 ---
LAWRENCE printed draft form of ED note and case management report and sent to admissiosn at [facility]. LAWRENCE called and confirmed updates were received. LAWRENCE spoke to admissions and she stated that she will print updates and take down to her business team leader so they can review and call SW right back. ED called for an update. At this time LAWRENCE is not sure [facility] can accept.
--- NOTE | 2024-06-19 16:09 | SWNOTE1 ---
LAWRENCE called admissions at [facility]. She did have nurse review and they need to know his widest length, hip to hip (so they can make sure they have a bed for him), skin assessment, and cpap settings (she told me she will call his doctor to get that), and some basic labs. Admissions also stated they would need to do an on site eval. LAWRENCE asked if this would be done today? She stated at this point it would not be able to be done until tomorrow. LAWRENCE then asked if they can guarantee that they will be taking the patient? She stated at this time there is no guarantee until they do an on site and the other information is sent over. SW to call ED doctor. LAWRENCE called down to ED and Doctor was in room and so was nurse. LAWRENCE requested they call SW back. LAWRENCE received call from nurse and LAWRENCE updated her with the information and advised nurse that SW will be here until ED doctor calls back to determine the plan for pt.
[2024-06-19 16:31] LABS: Basophils Percent Auto 0.3 % (0.2-2.0); Eosinophils Absolute Auto 0.1 10^3/uL (0.0-0.7); Eosinophils Percent Auto 2.1 % (0.9-7.0); Hematocrit 40.2 % (42.0-54.0); Hemoglobin 13.5 g/dL (14.0-18.0); Immature Granulocytes Abs Auto 0.02 10^3/uL (0.00-0.03); Immature Granulocytes Pct Auto 0.7 % (0.0-0.5); Lymphocytes Absolute Auto 0.6 10^3/uL (1.2-3.8); Lymphocytes Percent Auto 20.3 % (20.5-60.0); Mean Corpuscular HGB Conc 33.6 g/dL (29.9-35.2); Mean Corpuscular Hemoglobin 30.8 pg (25.9-34.0); Mean Corpuscular Volume 91.6 fL (80.0-94.0); Mean Platelet Volume 12.8 fL (9.5-13.5); Monocytes Absolute Auto 0.4 10^3/uL (0.3-0.8); Monocytes Percent Auto 12.2 % (1.7-12.0); Neutrophils Absolute Auto 1.8 10^3/uL (1.4-6.5); Neutrophils Percent Auto 64.4 % (43.0-75.0); Platelet Count 54 10^3/uL (150-450); Red Blood Count 4.39 10^6/uL (4.70-6.10); Red Cell Distribution Width 14.2 % (11.0-15.0); White Blood Count 2.9 10^3/uL (4.0-11.0)
--- NOTE | 2024-06-19 16:39 | SWNOTE1 ---
LAWRENCE spoke to nurse in ED and Dr. Francis will be calling Dr. Rubalcava to have pt admitted. LAWRENCE did speak with Dr. Rubalcava in regards to [facility] and the information that is needed. Also that they will do a face to face tomorrow. LAWRENCE to call admissions and update them at [facility] so that we can get someone here clive in morning.
--- NOTE | 2024-06-19 16:44 | SWNOTE1 ---
LAWRENCE spoke to admissions at [facility] and SW made her aware that pt is being admitted. SW requested someone come do the on site eval tomorrow morning. She stated he has to go to 2 other hospitals already, but since we are close she is hoping he can make it sooner than later. She again voiced that she has a lot of referrals and once they do the on site and the other information they will be able to tell us if they can accept.
[2024-06-19 16:47] LABS: Alanine Aminotransferase 23 U/L (16-63); Albumin Globulin Ratio 0.8; Alkaline Phosphatase 62 U/L (46-116); Anion Gap 14.6; Aspartate Amino Transferase 20 U/L (15-37); BUN Creatinine Ratio 18.6; Bilirubin Total 1.6 mg/dL (0.2-1.0); Carbon Dioxide 25.9 mmol/L (21.0-32.0); Chloride 102 mmol/L (98-107); Estimated GFR (African America >60 (>=60 mL/min/1.73m^2); Estimated GFR (Non-African Ame >60 (>=60 mL/min/1.73m^2); Glucose 102 mg/dL (74-106); Potassium 4.5 mmol/L (3.5-5.1); Sodium 138 mmol/L (136-145)
--- NOTE | 2024-06-19 17:06 | PM.HP ---
HPI H&P: HPI History of Present Illness Chief complaint: BACK PAIN INTRACTABLE BACK PAIN, UNABLE TO CARE Narrative: Patient is a 43 y.o white male with past medical history of hypertension, and chronic autoimmune thrombocytopenia, lymphedema. He also has severe morbid obesity with BMI 88. He brought in to the ER today with 2 week history of increased lower back pain despite celebrex and tizanidine and steriods. He denies any falls or trauma. Patient lives a sedentary lifestyle, has to urinate in a trash can, gets up using crutches to have bowel movements. He is not able to prepare meals for himself, or shower or perform any ADL's. Since his back started to hurt about 2-3 ago. Pain is worse on the right, gets a muscle spasm and then pain down his right leg feels more like a cramp. He uses compression devices for his lymphedema. CBC and CMP are stable, vitals stable. Patient received morphine IV in the ER for pain. She is admitted for evaluation into bariatric facility for Failure to thrive, and also for acute low back pain. This morning he states medications were helping but getting up with PT has been difficult. Opioid HPI Opioid Management Most Recent Pain and Opioid Data: Last Pain Scale 8 06/20/24 10:48 06/20/24 Last Pain Assessment 06/20/24 10:00 Last ED Pain Assessment 06/19/24 11:47 Last MAR Pain Assessment 06/20/24 10:48 Last ORT Total Score 1 06/19/24 18:28 06/19/24 Last ORT Risk Category Low Risk 06/19/24 18:28 06/19/24 Review of Systems ROS Narrative ROS: a complete review of systems were reviewed with patient and are positive as below or listed in History of Chief Complaint. General: no fever, chills, night sweats Head: no headache, trauma, visual changes, nausea or vomiting Skin: no reported rashes, itching or sores Eyes: no blurriness of vision Ears: no reported hearing loss, vertigo, earache, or tinnitus Throat: no sore throat, hoarseness, swelling of neck, or tongue pain Heart: no chest pain Lungs: no shortness of breath or cough GI: no diarrhea or vomiting/nausea Urinary: no urinary urgency, frequency or pain Neuro: no numbness or tingling, low back pain HEM: low platelets ENDO: no thyroid problems Psych: no anxiety or depression PFSH [facility] Medical History (Updated 06/19/24 @ 17:32 by Bernie Jacome) Obesity ?E66.9 - Obesity, unspecified (ICD-10) Abnormal serum cholesterol ?E78.9 - Disorder of lipoprotein metabolism, unspecified (ICD-10) Abnormal blood pressure Back pain ?M54.9 - Dorsalgia, unspecified (ICD-10) Autoimmune thrombocytopenia ?D69.3 - Immune thrombocytopenic purpura (ICD-10) Morbid obesity due to excess calories ?E66.01 - Morbid (severe) obesity due to excess calories (ICD-10) Prediabetes ?R73.03 - Prediabetes (ICD-10) Lymphedema ?I89.0 - Lymphedema, not elsewhere classified (ICD-10) Hypertension ?I10 - Essential (primary) hypertension (ICD-10) Sleep apnea ?G47.30 - Sleep apnea, unspecified (ICD-10) Surgical History Arthropathy of knee ?M17.10 - Unilateral primary osteoarthritis, unspecified knee (ICD-10) H/O rhinoplasty ?Z98.890 - Other specified postprocedural states (ICD-10) History of tonsillectomy ?Z90.89 - Acquired absence of other organs (ICD-10) Family History Grandfather Family history of cancer Grandmother Family history of stroke Family history of myocardial infarction Social History Within the past year, how often did you have a drink containing alcohol: monthly or less Within the past year, how many standard drinks containing alcohol did you have on a typical day: 1 or 2 Within the past year, how often did you have six or more drinks on one occasion: less than monthly Total score: 1 Score interpretation: A score less than 4 is consistent with normal alcohol consumption. Smoking status: Former smoker Non-prescribed substance use: denies use Previous occupational history: [employer] Highest level of school completed/degree received: Associate degree: occupational, technical, vocational program Are you now , , , , never or living with a partner: never In a typical week, how many times do you talk on the telephone with family, friends, or neighbors: 3 or more times per week How often do you get together with friends or relatives: twice per week How often do you attend sikhism or baptism services: never Do you belong to any clubs or organizations such as sikhism groups unions, fraternal or athletic groups, or school groups: no Total score: 1 Score interpretation: A score of less than or equal to 1 indicates the most socially isolated. Little interest or pleasure in doing things: not at all Feeling down, depressed, or hopeless: not at all Feel stressed/tense/nervous/anxious/difficulty sleeping: not at all Do you think of yourself as: straight/heterosexual Gender Identity: male Meds Home Medications and Allergies Home Medications ?Medication ?Instructions ?Recorded ?Confirmed ?Type carvedilol 6.25 mg tablet 12.5 mg PO BID 06/19/24 06/19/24 History celecoxib 100 mg capsule (Celebrex) 100 mg PO DAILY 06/19/24 06/19/24 History lisinopril 20 1 tab PO DAILY 06/19/24 06/19/24 History mg-hydrochlorothiazide 12.5 mg tablet prednisone 10 mg tablet 10 mg PO DAILY 06/19/24 06/19/24 History tizanidine 4 mg tablet 4 mg PO Q12H PRN spasms 06/19/24 06/19/24 History Allergies Allergy/AdvReac Type Severity Reaction Status Date / Time No Known Drug Allergies Allergy Verified 09/17/23 15:25 Exam Narrative Exam Narrative: General: Patient is alert, and oriented to person, place and time with normal affect, poor hygiene, morbid obesity Skin: statsis dermatitis with lymphedema, left leg, inner thigh has some erythema but no open wounds visible Head: atraumatic, acephalic Eyes: PERRLA, no nystagmus present, conjunctiva clear, no scleral icterus Ears: normal gross auditory acuity Neck: no masses palpated, normal thyroid, no JVD or audible carotid bruits Heart: Normal rate and rhythm, no murmurs/rubs/gallops Lungs: no audible wheezes, crackles and normal breath sounds all lung richardson Abdomen: Normal audible bowel sounds, no distension, No palpable masses, no organomegaly, no rebound/guarding/ or rigidity Musculoskeletal: lymphedema/ swelling bilateral lower extremities Neuro: CN II-X grossly intact Constitutional Vital Signs, click to edit/add: Last Vital Signs Temp 98.1 F 06/19/24 11:28 Pulse 76 06/19/24 11:28 Resp 18 06/19/24 11:28 BP 160/80 H 06/19/24 11:28 Pulse Ox 98 06/19/24 11:47 O2 Del Method Room Air 06/19/24 11:47 Results Labs Labs: Short CBC 06/19/24 Range/Units 11:37 WBC 2.9 L (4.0-11.0) 10^3/uL Hgb 13.5 L (14.0-18.0) g/dL Hct 40.2 L (42.0-54.0) % Plt Count 54 L (150-450) 10^3/uL BMP 06/19/24 11:37 Sodium 138 Potassium 4.5 Chloride 102 Carbon Dioxide 25.9 BUN 18.0 Creatinine 0.97 Glucose 102 Calcium 9.0 Liver Function 06/19/24 Range/Units 11:37 Total Bilirubin 1.6 H (0.2-1.0) mg/dL AST 20 (15-37) U/L ALT 23 (16-63) U/L Alkaline Phosphatase 62 (46-116) U/L Albumin 3.0 L (3.4-5.0) g/dL Assessment and Plan Assessment and Plan (1) Sciatica: Assessment and Plan: continue toradol, oxycodone as needed. Imaging cannot be completed as patient cannot get up or fit in machines. No loss of bowel bladder. symptomatic treatment, add solumedrol and d/c toradol Qualifiers: Laterality: right Qualified Code(s): M54.31 - Sciatica, right side (2) Morbid obesity due to excess calories: Assessment and Plan: pt/ot evaluation, skin assessment, hopeful placement to bariatric facility (3) Hypertension: Assessment and Plan: continue lisinopril/hctz, continue coreg Qualifiers: Hypertension type: primary hypertension Qualified Code(s): I10 - Essential (primary) hypertension (4) Sleep apnea: Assessment and Plan: continue home cpap Qualifiers: Sleep apnea type: unspecified type Qualified Code(s): G47.30 - Sleep apnea, unspecified (5) Autoimmune thrombocytopenia: Assessment and Plan: Sees Dr. Blanton in [place] via virtual visits. Plan Patient is a full code no prophylaxis due to platelets for DVT prophylaxis patient is in observation
[2024-06-19 17:39] LABS: Bilirubin Urine NEGATIVE (NEGATIVE); Blood Urine TRACE-I (NEGATIVE); Clarity Urine CLEAR (CLEAR); Color Urine LT. YELLOW (YELLOW); Glucose Urine UA NEGATIVE (NEGATIVE); Ketones Urine NEGATIVE (NEGATIVE); Leukocyte Esterase Urine NEGATIVE (NEGATIVE); Nitrite Urine NEGATIVE (NEGATIVE); Protein Urine NEGATIVE (NEG/TRACE); Specific Gravity Urine 1.015 (1.005-1.025); Urobilinogen Urine 0.2 EU/dL (0.2-1.0)
[2024-06-19 17:52] LABS: Bacteria Urine TRACE #/HPF (NONE SEEN); Crystals Seen? None Seen #/HPF (None Seen); Mucus Urine NONE SEEN (NONE SEEN); RBC Urine 0-2 #/HPF (0-2); Squamous Epithelial Cell Urine FEW #/LPF (NONE/RARE); WBC Urine NONE SEEN #/HPF (NONE SEEN)
[2024-06-19 17:53] LABS: Cast Seen? NONE SEEN #/LPF (NONE SEEN)
--- OUTSIDE RECORDS SUMMARY | 2024-06-19 18:25 | XMS_ITS | CCD ---
Author Organization [facility] ion [facility] Care Team Providers Care Tuck Pointer Name Role Phone Monterroso Milton Barakatin Primary Care Provider [phone] KIERSTEN MAXWELL Consulting [facility] Primary Care Unavailable CURTIS BAKER Attending Unavailable CURTIS BAKER Admitting Unavailable Loc MOBILE UI DESIGNER - SAMPLE WEAVER, Milton Wilde Primary Care Pr ovider Loc MOBILE UI DESIGNER - SAMPLE WEAVER, Milton Wilde Primary Care Pr ovider BREN VU Attending Unavailable BREN VU Referring Unavailable MONTERROSO MILTON WILDE Primary Care Unavailabl e MONTERROSO MILTON ANDRY Referring Unavailabl e MONTERROSO MILTON WILDE Primary Care Unavailabl e BREN VU Attending Unavailable BREN VU Referring Unavailable MONTERROSO MILTON ANDRY Primary Care Unavailabl e FRED BELCHER Attending Unavailable ANGELITO MAYS Primary Care Unavailable FRED BELCHER Referring Unavailable FRED BELCHER Attending Unavailable DAVONANGELITO José Primary Care Unavailable FRED BELCHER Referring Unavailable DAVONANGELITO José Attending Unavailable ANGELITO MAYS Referring Unavailable DAVONANGELITO José Primary Care Unavailable FRED BELCHER Attending Unavailable FRED BELCHER Referring Unavailable DAVONANGELITO José Primary Care Unavailable FRED BELCHER Attending Unavailable FRED BELCHER Referring Unavailable DAVONANGELITO José Primary Care Unavailable ANGELITO MAYS Attending Unavailable ANGELITO MAYS Referring Unavailable DAVONANGELITO José Primary Care Unavailable FRED BELCHER Attending Unavailable ANGELITO MAYS Primary Care Unavailable FRED BELCHER Referring Unavailable FRED BELCHER Attending Unavailable ANGELITO MAYS Primary Care Unavailable FRED BELCHER Referring Unavailable Allergies Allergy Classification Reported Allergen(s) Allergy Type Date of Onset Reaction(s) Facility Bee/Wasp/Ant Venom (8 sources) bee venom Substance Allergy 6 [facility] Latrodectus mactans antivenin (8 sources) Latrodectus mactans antivenin Drug Allergy 6 [facility] (18 sources) bee venom Propensity to adverse reactions to drug 6 [place], [place] (18 sources) Latrodectus mactans antivenin Drug Allergy 6 [place] (1 source) bee venom Drug allergy (disorder) [facility] (1 source) spider venom Drug allergy (disorder) [facility] Medications Current Medications Medication Drug Class(es) Dates Sig (Normalized) Sig (Original) ascorbic acid 250 mg oral tablet (20 sources) Vitamin C take 1 tablet by mouth once daily Ascorbic Acid (VITAMIN C) 250 MG tablet Take 250 mg by mouth daily 0 Active carvedilol 6.25 mg oral tablet (20 sources) alpha-Adrenergic Avinash, beta-Adrenergic Avinash Start: 12-16-2021 take 1 tablet by mouth twice daily carvedilol (COREG) 6.25 MG tablet take 1 tablet by mouth twice a day 180 tablet 1 12/16/2021 Active Start: 07-26-2021 take 1 tablet by denis th twice daily carvedilol (COREG) 6.25 MG tablet take 1 tablet by mouth twice a day 180 tablet 1 07/26/2021 Active Start: 02-08-2021 take 1 tablet by denis th twice daily carvedilol (COREG) 6.25 MG tablet take 1 tablet by mouth twice a day 180 tablet 1 02/08/2021 Active Start: 08-13-2020 take 1 tablet by denis th twice daily carvedilol (COREG) 6.25 MG tablet take 1 tablet by mouth twice a day 180 tablet 1 08/13/2020 Active Start: 10-24-2019 take 1 tablet by denis th twice daily carvedilol (COREG) 6.25 MG tablet take 1 tablet by mouth twice a day 180 tablet 0 10/24/2019 Active Handicap Placard MISC (20 sources) Start: 08-06-2020 Handicap James MISC by Does not apply route Duration 5 years 1 each 0 08/06/2020 Active hydroCHLOROthiazide 12.5 mg / lisinopril 20 mg oral tablet (20 sources) Thiazide Diuretic, Angiotensin Converting Enzyme Inhibitor Start: 12-16-2021 take 2 tablets by mouth once daily lisinopril-hydr oCHLOROthiazide (PRINZIDE;ZESTO RETIC) 20-12.5 MG per tablet take 2 tablets by mouth once daily 180 tablet 1 12/16/2021 Active Start: 11-01-2021 take 2 tablets by mouth once daily lisinopril-hydroCHLOROthiazide (PRINZIDE;ZESTORETIC) 20-12.5 MG per tablet take 2 tablets by mouth once daily 180 tablet 0 11/01/2021 Active Start: 02-08-2021 take 2 tablets by mouth once daily lisinopril-hydroCHLOROthiazide (PRINZIDE;ZESTORETIC) 20-12.5 MG per tablet take 2 tablets by mouth once daily 90 tablet 1 02/08/2021 Active Start: 11-12-2020 take 2 tablets by mouth once daily lisinopril-hydroCHLOROthiazide (PRINZIDE;ZESTORETIC) 20-12.5 MG per tablet take 2 tablets by mouth once daily 90 tablet 1 11/12/2020 Active Start: 10-24-2019 take 2 tablets by mouth once daily lisinopril-hydroCHLOROthiazide (PRINZIDE;ZESTORETIC) 20-12.5 MG per tablet take 2 tablets by mouth daily 90 tablet 1 10/24/2019 Active Magnesium (20 sources) Magnesium 500 MG TABS Take 1 tablet by mouth as needed 0 Active melatonin 10 mg oral capsule (5 sources) take 1 capsule by mouth once daily melatonin 10 MG CAPS capsule Take 10 mg by mouth nightly 0 Active mupirocin 0.02 mg/mg topical ointment (2 sources) RNA Synthetase Inhibitor Antibacterial Start: 12-14-19 End: 12-21-19 mupirocin (BACTROBAN) 2 % ointment Apply topically 3 times daily. 22 g 0 12/13/2021 12/20/2021 Active sulfamethoxazole 400 mg / trimethoprim 80 mg oral tablet (3 sources) Dihydrofolate Reductase Inhibitor Antibacterial, Sulfonamide Antimicrobial Start: 01-14-20 End: 01-24-20 take 1 tablet by mouth once daily sulfamethoxazole- trimethoprim (BACTRIM) 400-80 MG per tablet Indications: Bacterial infection Take 1 tablet by mouth daily for 10 days 10 tablet 0 01/13/2022 01/23/2022 Active Start: 12-13-2021 End: 12-23-2021 take 1 tablet by mouth twice daily sulfamethoxazole-trimethoprim (BACTRIM D S) 800-160 MG per tablet Take 1 tablet by mouth 2 times daily for 10 days 20 tablet 0 12/13/2021 12/23/2021 Active turmeric extract 500 mg oral capsule (20 sources) Start: 01-18-2018 take 1 capsule by mouth twice daily Turmeric 500 MG CAPS Take 1 capsule by mouth 2 times daily 60 capsule 2 01/18/2018 Active Start: 01-18-2018 take 1 capsule by mo uth twice daily Turmeric 500 MG CAPS Take 1 capsule by mouth 2 times daily 60 capsule 2 01/18/2018 Active Completed/Discontinued Medications Medication Drug Class(es) Dates Sig (Normalized) Sig (Original) celecoxib 100 mg oral capsule (20 sources) Nonsteroidal Anti-inflammatory Drug Start: 06-21-2021 End: 02-03-2022 take 1 capsule by mouth once daily celecoxib (CELEBREX) 100 MG capsule Take 1 capsule by mouth daily 180 capsule 0 06/21/2021 02/03/2022 Discontinued (Therapy completed) Start: 01-07-2021 take 1 capsule by mo uth once daily celecoxib (CELEBREX) 100 MG capsule take 1 capsule by mouth once daily 180 capsule 1 01/07/2021 Active Start: 01-17-2020 take 1 capsule by mo uth once daily celecoxib (CELEBREX) 100 MG capsule take 1 capsule by mouth once daily 180 capsule 1 01/17/2020 Active Problems Active Problems Problem Classification Problem Date Documented Date Episodic/Chronic Chronic ulcer of skin (4 sources) Ulcer of monet; Translations: [Non-pressure chronic ulcer of other part of left lower leg with fat layer exposed] Onset: 12-23-2021 12-23-2021 Chronic Coagulation and hemorrhagic disorders (20 sources) Platelet count below reference range; Translations: [Thrombocytopenia, unspecified] Onset: 06-20-2017 Chronic Diseases of white blood cells (2 sources) Decreased blood leukocyte number; Translations: [Other decreased white blood cell count] Onset: 01-18-2024 Chronic Essential hypertension (1 source) Essential hypertension; Translations: [Essential (primary) hypertension] Chronic Fever of unknown origin (1 source) Fever; Translations: [Fever, unspecified fever cause] Episodic Headache; including migraine (4 sources) Headache; including migraine; Translations: [HEADACHE UNSPECIFIED] Onset: 11-08-2021 Open wounds of extremities (1 source) Open wound of lower limb; Translations: [Unspecified open wound, left knee, initial encounter] Episodic Osteoarthritis (20 sources) Arthritis; Translations: [Unspecified osteoarthritis, unspecified site] Onset: 12-31-2015 12-31-2015 Chronic Other aftercare (1 source) Other longterm (current) drug therapy; Translations: [OTH FOOD PORTER CURRENT DRUG THERAPY] Onset: 11-09-2021 Episodic Other connective tissue disease (2 sources) Other specified soft tissue disorders; Translations: [Other specified soft tissue disorders] Onset: 05-09-2024 Episodic Other diseases of veins and lymphatics (1 source) Lymphedema; Translations: [Lymphedema, not elsewhere classified] Chronic Other diseases of veins and lymphatics (4 sources) Lymphedema of bilateral lower limbs; Translations: [Lymphedema, not elsewhere classified] Onset: 12-23-2021 12-23-2021 Chronic Other diseases of veins and lymphatics (4 sources) Chronic acquired lymphedema; Translations: [Lymphedema, not elsewhere classified] Onset: 12-23-2021 12-23-2021 Chronic Other diseases of veins and lymphatics (3 sources) Lymphedema, not elsewhere classified; Translations: [Lymphedema, not elsewhere classified] Onset: 07-07-2022 Chronic Other diseases of veins and lymphatics (4 sources) Stasis dermatitis; Translations: [Venous insufficiency (chronic) (peripheral)] Onset: 12-23-2021 12-23-2021 Episodic Other non-traumatic joint disorders (1 source) Hip pain; Translations: [Pain in left hip] Episodic Other nutritional; endocrine; and metabolic disorders (20 sources) Morbid obesity; Translations: [Morbid (severe) obesity due to excess calories] Onset: 12-31-2015 12-31-2015 Chronic Residual codes; unclassified (20 sources) Sleep apnea; Translations: [Sleep apnea, unspecified] Onset: 12-31-2015 12-31-2015 Chronic Residual codes; unclassified (1 source) Generalized aches and pains; Translations: [Body aches] Episodic Past or Other Problems Problem Classification Problem Date Documented Da te Episodic/Chronic Bacterial infection; unspecified site (4 sources) Bacterial infectious disease; Translations: [Bacterial infection, unspecified] Onset: 12-23-2021 Episodic Conditions associated with dizziness or vertigo (1 source) Dizziness and giddiness; Translations: [Dizziness and giddiness] Onset: 08-10-2023 Episodic Other screening for suspected conditions (not mental disorders or infectious disease) (1 source) Platelet count below reference range; Translations: [Thrombocytopenia] Onset: 06-20-2017 06-20-2017 Episodic Other skin disorders (20 sources) Mass of lower limb; Translations: [Localized swelling, mass and lump, left lower limb] Onset: 01-14-2021 01-14-2021 Episodic Spondylosis; intervertebral disc disorders; other back problems (20 sources) Chronic low back pain; Translations: [Low back pain] Onset: 06-20-2017 06-20-2017 Episodic Results Test Name Value Interpretation Reference Range Facility US ABDOMEN LIMITEDon 024 US ABDOMEN LIMITED EXAMINATION: RIGHT UPPER QUADRANT ULTRASOUND 01/18/2024 11:16 am COMPARISON: None. HISTORY: ORDERING SYSTEM PROVIDED HISTORY: Thrombocytopenia (HCC) TECHNOLOGIST PROVIDED HISTORY: [facility] Leukopenia and thrombocytopenia, looking for signs of cirrhosis Specify organ?->LIVER Specify organ?->SPLEEN FINDINGS: Overall somewhat limited exam due to the patient's inability to position appropriately for scanning. LIVER: Visualized liver has a coarse heterogeneous echotexture. On some of the images there is subtle surface nodularity suggesting underlying cirrhotic changes. Liver length is 19.1 cm. Flow in the main portal vein appears to be hepatopetal. Consider CT or MRI for more precise evaluation. BILIARY SYSTEM: Gallbladder is unremarkable without evidence of pericholecystic fluid, wall thickening or stones. Negative sonographic Powers's sign. Common bile duct is within normal limits measuring 5.5 mm. RIGHT KIDNEY: The right kidney is grossly unremarkable without evidence of hydronephrosis. PANCREAS: Pancreas not well visualized. OTHER: No evidence of right upper quadrant ascites. SPLEEN: The spleen is enlarged measuring up to 20.8 cm length. By ultrasound no focal masses are identified. IMPRESSION: Overall somewhat limited exam. Subtle cirrhotic changes of the liver. Splenomegaly. Interpreted by: Huy Ramsey MD Signed by: Huy Ramsey MD 01/20/24 Final result Normal [facility] CBC with Diffon 01-18-2024 Abs. Basophil 0.00 k/uL Normal 0.0-0.2 [facility] Comment on above: Performed By: #### C DP #### [facility] [address] [place] [address] [place] [address] Door Worker: Benjamin Stark MD Abs.Imm.Granulocyte 0.03 k/uL Normal 0.00-0.30 [facility] Comment on above: Performed By: #### C DP #### [address] [place] [address] Door Worker: Benjamin Stark MD Abs.Neutrophil (Seg) 1.58 k/uL Normal 1.50-8.[address] [facility] Comment on above: Performed By: #### C DP #### [address] [place] [address] Door Worker: Benjamin Stark MD Basophils/100 WBC (Bld) 0 % Normal 0-2 [facility] Comment on above: Performed By: #### C DP #### [address] [place], [place] [address] Door Worker: Benjamin Stark MD Eosinophils (Bld) [#/Vol] 0.08 10*3/uL Normal 0.00-0.44 [facility] Comment on above: Performed By: #### C DP #### [address] [place] [id number] Door Worker: Benjamin Stark MD Eosinophils/100 WBC (Bld) 3 % Normal 1-4 [facility] Comment on above: Performed By: #### C DP #### [address] [place], [place] [id number] Door Worker: Benjamin Stark MD Immature granulocytes/100 WBC (Bld) 1 % High 0 [facility] Comment on above: Performed By: #### C DP #### [facility] [address] [place], [place] [id number] Door Worker: Benjamin Stark MD Lymphocytes (Bld) [#/Vol] 0.58 10*3/uL Low 1.10-3.70 [facility] Comment on above: Performed By: #### C DP #### [facility] [address] [place], [place] [id number] Door Worker: Benjamin Stark MD Lymphocytes/100 WBC (Bld) 23 % Low 24-43 [facility] Comment on above: Performed By: #### C DP #### [facility] [address] [place] [address] Dr[address] [place], [facility]83 Door Worker: Benjamin Stark MD Monocytes (Bld) [#/Vol] 0.23 10*3/uL Normal 0.10-1.20 [facility] Comment on above: Performed By: #### C DP #### [facility] [address] [place] [address] Dr. [place], [place] [id number] Door Worker: Benjamin Stark MD Monocytes/100 WBC (Bld) 9 % Normal 3-12 [facility] Comment on above: Performed By: #### C DP #### [facility] [address] [place], [place] [id number] Door Worker: Benjamin Stark MD Morphology Manan (Bld) [Interp] Large platelets noted Normal [facility] Comment on above: Performed By: #### C DP #### [facility] [address] [place], [place] [id number] Door Worker: Benjamin Stark MD Neutrophil (Seg) 64 % Normal 36-65 [facility] Comment on above: Performed By: #### C DP #### [address] [place], [place] [id number] Door Worker: Benjamin Stark MD Erythrocyte distribution width (RBC) [Ratio] 15.1 % High 11.8-14.4 [facility] Comment on above: Performed By: #### C DP #### [address] [place], [facility]83 Door Worker: Benjamin Stark MD Hematocrit (Bld) [Volume fraction] 39.5 % Low 40.7-50.3 [facility] Comment on above: Performed By: #### C DP #### [address] [place], [facility]83 Door Worker: Benjamin Stark MD Hemoglobin (Bld) [Mass/Vol] 12.9 g/dL Low 13.0-17.0 [facility] Comment on above: Performed By: #### C DP #### [address] [place], [facility]83 Door Worker: Benjamin Stark MD MCH (RBC) [Entitic mass] 29.6 pg Normal 25.2-33.5 [facility] Comment on above: Performed By: #### C DP #### [address] [place], [facility]83 Door Worker: Benjamin Stark MD MCHC (RBC) [Mass/Vol] 32.7 g/dL Normal 28.4-34.8 [facility] Comment on above: Performed By: #### C DP #### [address] [place] [address] Door Worker: Benjamin Stark MD MCV (RBC) [Entitic vol] 90.6 fL Normal 82.6-102.9 [facility] Comment on above: Performed By: #### C DP #### [address] [place] [id number] Door Worker: Benjamin Stark MD NRBC Automated 0.0 per 100 WBC Normal 0.0 [facility] Comment on above: Performed By: #### C DP #### [facility] [address] [place], [place] [id number] Door Worker: Benjamin Stark MD Platelet Count See Reflexed IPF Result Normal 138-453 [facility] Comment on above: Performed By: #### C DP #### [facility] [address] [place], [facility]83 Door Worker: Benjamin Stark MD Platelet, Fluoresc. 38 k/uL Low 138-453 [facility] Comment on above: Performed By: #### C DP #### [facility] [address] [place], [facility]83 Door Worker: Benjamin Stark MD PLT, Immature Fract. 9.4 % Normal 1.1-10.[address] [facility] Comment on above: Performed By: #### C DP #### [facility] [address] [place] [address] Dr. [place], [place] [address] Door Worker: Benjamin Stark MD RBC (Bld) [#/Vol] 4.36 10*6/uL Normal 4.21-5.77 [facility] Comment on above: Performed By: #### C DP #### [facility] [address] [place], [facility]83 Door Worker: Benjamin Stark MD WBC (Bld) [#/Vol] 2.5 10*3/uL Low 3.5-11.3 [facility] Comment on above: Performed By: #### C DP #### [facility] [address] [place], [place] [id number] Door Worker: Benjamin Stark MD CBCon 12-13-2021 Hematocrit (Bld) [Volume fraction] 39.0 % Low 40.7 - 50.3 % [facility] Hemoglobin.gastrointest inal spec 1 Ql (Stl) 12.7 g/dL Low 13.0 - 17.0 g/dL [facility] Interpretation and review of laboratory results Abnormal [facility] MCH (RBC) [Entitic mass] 31.3 pg 25.2 - 33.5 pg [facility] MCHC (RBC) [Mass/Vol] 32.6 g/dL 28.4 - 34.8 g/dL [facility] MCV (RBC) [Entitic vol] 96.1 fL 82.6 - 102.9 fL [facility] NRBC Automated 0.0 0.0 per 100 WBC [facility] Platelet distribution width (Bld) [Ratio] 13.3 % 11.8 - 14.4 % [facility] Platelets (Bld) [#/Vol] See Reflexed IPF Result [facility] RBC (Bld) [#/Vol] 4.06 10*6/uL Low 4.21 - 5.7 7 m/uL [facility] WBC (Bld) [#/Vol] 3.8 10*3/uL [facility] Comprehensive Metabolic Pane pam 12-13-2021 Albumin [Mass/Vol] 3.5 g/dL 3.5 - 5.2 g/dL [facility] Albumin/Globulin [Mass ratio] 0.8 {ratio} Low [facility] ALP (Bld) [Catalytic activity/Vol] 75 U/L 40 - 129 U/L [facility] ALT [Catalytic activity/Vol] 19 U/L 5 - 41 U/L [facility] Anion gap [Moles/Vol] 8 mmol/L Low 9 - 17 mmol/L [facility] AST [Catalytic activity/Vol] 31 U/L <40 [facility] Bilirubin [Mass/Vol] 0.99 mg/dL 0.3 - 1 .2 mg/dL [facility] Calcium [Mass/Vol] 8.9 mg/dL 8.6 - 10. 4 mg/dL [facility] Chloride [Moles/Vol] 100 mmol/L 98 - 10 7 mmol/L [facility] CO2 [Moles/Vol] 26 mmol/L 20 - 31 mmol/L [facility] Creatinine [Mass/Vol] 0.94 mg/dL 0.70 - 1.20 mg/dL [facility] Free PSA/Total PSA [Mass fraction] 7.9 g/dL 6.4 - 8.3 g/dL [facility] GFR >60 >60 mL/min [facility] GFR Non- >60 >60 mL/min [facility] Glucose [Mass/Vol] 112 mg/dL High 70 - 99 mg/dL [facility] Interpretation and review of laboratory results Abnormal [facility] Potassium [Moles/Vol] 4.6 mmol/L 3.7 - 5.3 mmol/L [facility] Sodium [Moles/Vol] 134 mmol/L Low 135 - 144 mmol/L [facility] Urea nitrogen (BldV) [Mass/Vol] 24 mg/dL High 6 - 20 mg/dL [facility] Urea nitrogen/Creatinine (Bld) [Mass ratio] 26 High [facility] Immature Platelet Fractionon 12-13-2021 Interpretation and review of laboratory results Abnormal [facility] Platelet, Fluorescence 67 Low [facility] Platelet, Immature Fraction 9.6 % 1.1 - 10.3 % [facility] Laboratory - Chemistry and C hemistry - challengeon 12-13-2021 GFR/1.73 sq M.predicted MDRD (S/P/Bld) [Vol rate/Area] [facility] Comment on above: Average GFR for 40-4 9 years old: 99 mL/min/1.73sq m Chronic Kidney Disease: <60 mL/min/1.73sq m Kidney failure: <15 mL/min/1.73sq m eGFR calculated using average adult body mass. Additional eGFR calculator available at: http://[email or web address]Prosper/multiple_crcl_2012.htm Stage 1: Some kidney damage normal GFR Stage 2: Mild kidney damage GFR 60-89 Stage 3: Moderate kidney damage GFR 30-59 Stage 4: Severe kidney damage GFR 15-29 Stage 5: Severe kidney damage GFR <15 ESRD - chronic treatment by dialysis or transplant Lipid Panelon 12-13-2021 Cholesterol [Mass/Vol] 116 mg/dL <200 [facility] Comment on above: Cholesterol Guidelines: <200 Desirable 200-240 Borderline >240 Undesirable Cholesterol in HDL [Mass/Vol] 40 mg/dL Low >40 [facility] Comment on above: HDL Guidelines: <40 Undesirable 40-59 Borderline >59 Desirable Cholesterol in LDL [Mass/Vol] 64 mg/dL 0 - 130 mg/dL [facility] Comment on above: LDL Guidelines: <100 Desirable 100-129 Near to/above Desirable 130-159 Borderline >159 Undesirable Direct (measured) LDL and calculated LDL are not interchangeable tests. Cholesterol.total/Gloria sterol in HDL [Mass ratio] 2.9 {ratio} <5 [facility] Interpretation and review of laboratory results Abnormal [facility] Triglyceride [Mass/Vol] 60 mg/dL <150 [facility] Comment on above: Triglyceride Guidelines: <150 Desirable 150-199 Borderline 200-499 High >499 Very high Based on AHA Guidelines for fasting triglyceride, April 2012. [facility] CBC Auto DifferentialOrdered By: Bren Vu on 01-13-2021 [facility] # 0.22 [facility] Work Phone: [facility] Immature Granulocyte 0.14 [facility] Work Phone: [facility] Lymph # 0.46 Low [facility] Work Phone: Absolute [place] # 0.03 Low [facility] Work Phone: Basophils (Bld) [#/Vol] 0.03 10*3/uL [facility] Work Phone: Basophils/100 WBC (Bld) 1 % 0 - 2 % [facility] Work Phone: Differential Type NOT REPORTED [facility] Work Phone: Eosinophils/100 WBC (Bld) 8 % High 1 - 4 % [facility] Work Phone: Hematocrit (Bld) [Volume fraction] 38.9 % Low 40.7 - 50.3 % [facility] Work Phone: Hemoglobin.gastrointest inal spec 1 Ql (Stl) 12.8 g/dL Low 13.0 - 17.0 g/dL [facility] Work Phone: Immature granulocytes/100 WBC (Bld) 5 % High 0 [facility] Work Phone: Interpretation and review of laboratory results Abnormal [facility] Work Phone: Lymphocytes/100 WBC (Bld) 17 % Low 24 - 43 % [facility] Phone: MCH (RBC) [Entitic mass] 31.6 pg 25.2 - 33.5 pg [facility] Phone: MCHC (RBC) [Mass/Vol] 32.9 g/dL 28.4 - 34.8 g/dL [facility] Phone: MCV (RBC) [Entitic vol] 96.0 fL 82.6 - 102.9 fL [facility] Phone: Monocytes/100 WBC (Bld) 1 % Low 3 - 12 % [facility] Phone: Morphology Manan (Bld) [Interp] Platelet scan shows Decreased Platelets [facility] Phone: NRBC Automated 0.0 0.0 per 100 WBC [facility] Phone: Platelet distribution width (Bld) [Ratio] 13.8 % 11.8 - 14.4 % [facility] Phone: Platelet Estimate NOT REPORTED [facility] Phone: Platelet mean volume (Bld) [Entitic vol] NOT REPORTED 8.1 - 13.5 fL [facility] Phone: Platelets (Bld) [#/Vol] See Reflexed IPF Result [employer] Phone: RBC (Bld) [#/Vol] 4.05 10*6/uL Low 4.21 - 5.7 7 m/uL [employer] Phone: RBC (Bld) [#/Vol] NOT REPORTED [employer] Phone: Segmented neutrophils/100 WBC (Bld) 68 % High 36 - 65 % [employer] Phone: Segs Absolute 1.82 [employer] Phone: WBC (Bld) [#/Vol] 2.7 10*3/uL Low [employer] Phone: WBC (Bld) [#/Vol] NOT REPORTED [employer] Phone: [employer] Phone: Immature Platelet FractionOr dered By: Bren Vu on 01-13-2021 Interpretation and review of laboratory results Abnormal [employer] Phone: Platelet, Fluorescence 55 Low Me [employer] Phone: Platelet, Immature Fraction 11.6 % High 1.1 - 10.3 % [employer] Phone: [employer] Phone: CBC AND DIFFERENTIALon 01-09 % AUTOMATED IMMATURE GRAN Canceled Normal 0.0 - 0.9 [facility] [place] Comment on above: Order Comment: TEST CBC AND DIFFERENTIAL WAS CANCELLED, 01/10/2020 10:58 TEST CANCELLED PER NURSE/DOCTOR; PER MERLY GARCIA RN AT [facility]; [place]; 01/10/2020 10:58. Result Comment: Mabel ture Granulocyte Count (IG) includes promyelocytes, myelocytes and metamyelocytes but does not include bands. Percent differential counts (%) should be interpreted in the context of the absolute cell counts (cells/L). This is a corrected result. Previous value was 0.3, verified at 01/10/2020 10:48 Performed By: #### C BCDF #### [facility] [address] [place] [address] Basophils (Bld) [#/Vol] Canceled Normal 0.00 - 0.10 [facility] [place] Comment on above: Order Comment: TEST CBC AND DIFFERENTIAL WAS CANCELLED, 01/10/2020 10:58 TEST CANCELLED PER NURSE/DOCTOR; PER MERLY GARCIA RN AT [facility]; [place]; 01/10/2020 10:58. Result Comment: This is a corrected result. Previous value was 0.03, verified at 01/10/2020 10:48 Performed By: #### C BCDF #### [address] [place] [address] Basophils/100 WBC (Bld) Canceled Normal 0.0 - 2.0 [facility] [place] Comment on above: Order Comment: TEST CBC AND DIFFERENTIAL WAS CANCELLED, 01/10/2020 10:58 TEST CANCELLED PER NURSE/DOCTOR; PER MERLY GARCIA RN AT [facility]; [place]; 01/10/2020 10:58. Result Comment: This is a corrected result. Previous value was 0.9, verified at 01/10/2020 10:48 Performed By: #### C BCDF #### [address] [place] [address] DIFFERENTIAL Canceled Normal [facility] [place] Comment on above: Order Comment: TEST CBC AND DIFFERENTIAL WAS CANCELLED, 01/10/2020 10:58 TEST CANCELLED PER NURSE/DOCTOR; PER MERLY GARCIA RN AT [facility]; [place]; 01/10/2020 10:58. Performed By: #### C BCDF #### [address] [place] [address] Eosinophils (Bld) [#/Vol] Canceled Normal 0.00 - 0.70 [facility] [place] Comment on above: Order Comment: TEST CBC AND DIFFERENTIAL WAS CANCELLED, 01/10/2020 10:58 TEST CANCELLED PER NURSE/DOCTOR; PER MERLY GARCIA RN AT [facility]; [place]; 01/10/2020 10:58. Result Comment: This is a corrected result. Previous value was 0.13, verified at 01/10/2020 10:48 Performed By: #### C BCDF #### [address] [place] [address] Eosinophils/100 WBC (Bld) Canceled Normal 0.0 - 6.0 [facility] [place] Comment on above: Order Comment: TEST CBC AND DIFFERENTIAL WAS CANCELLED, 01/10/2020 10:58 TEST CANCELLED PER NURSE/DOCTOR; PER MERLY GARCIA RN AT [facility]; [place]; 01/10/2020 10:58. Result Comment: This is a corrected result. Previous value was 3.9, verified at 01/10/2020 10:48 Performed By: #### C BCDF #### [address] [place] [address] Erythrocyte distribution width (RBC) [Ratio] Canceled Normal 11.5 - 14.5 [facility] [place] Comment on above: Order Comment: TEST CBC AND DIFFERENTIAL WAS CANCELLED, 01/10/2020 10:58 TEST CANCELLED PER NURSE/DOCTOR; PER MERLY GARCIA RN AT [facility]; [place]; 01/10/2020 10:58. Result Comment: This is a corrected result. Previous value was 13.1, verified at 01/10/2020 10:48 Performed By: #### C BCDF #### [address] [place] [address] Hematocrit (Bld) [Volume fraction] Canceled Normal 41.0 - 52.0 [facility] [place] Comment on above: Order Comment: TEST CBC AND DIFFERENTIAL WAS CANCELLED, 01/10/2020 10:58 TEST CANCELLED PER NURSE/DOCTOR; PER MERLY GARCIA RN AT [facility]; [place]; 01/10/2020 10:58. Result Comment: This is a corrected result. Previous value was 41.8, verified at 01/10/2020 10:48 Performed By: #### C BCDF #### [address] [place] [address] Hemoglobin (Bld) [Mass/Vol] Canceled Normal 13.5 - 17.5 [facility] [place] Comment on above: Order Comment: TEST CBC AND DIFFERENTIAL WAS CANCELLED, 01/10/2020 10:58 TEST CANCELLED PER NURSE/DOCTOR; PER MERLY GARCIA RN AT [facility]; [place]; 01/10/2020 10:58. Result Comment: This is a corrected result. Previous value was 13.8, verified at 01/10/2020 10:48 Performed By: #### C BCDF #### [address] [place] [address] Lymphocytes (Bld) [#/Vol] Canceled Normal 13.0 - 44.0 [facility] [place] Comment on above: Order Comment: TEST CBC AND DIFFERENTIAL WAS CANCELLED, 01/10/2020 10:58 TEST CANCELLED PER NURSE/DOCTOR; PER MERLY GARCIA RN AT [facility]; [place]; 01/10/2020 10:58. Result Comment: This is a corrected result. Previous value was 0.67, verified at 01/10/2020 10:48 Performed By: #### C BCDF #### [address] [place] [address] Result Comment: This is a corrected result. Previous value was 20.3, verified at 01/10/2020 10:48 MCHC (RBC) [Mass/Vol] Canceled Normal 32.0 - 36.0 [facility] Comment on above: Order Comment: TEST CBC AND DIFFERENTIAL WAS CANCELLED, 01/10/2020 10:58 TEST CANCELLED PER NURSE/DOCTOR; PER MERLY GARCIA RN AT [facility]; [place]; 01/10/2020 10:58. Result Comment: This is a corrected result. Previous value was 33.0, verified at 01/10/2020 10:48 Performed By: #### C BCDF #### [address] [place] [address] MCV (RBC) [Entitic vol] Canceled Normal 80 - 100 [facility] Comment on above: Order Comment: TEST CBC AND DIFFERENTIAL WAS CANCELLED, 01/10/2020 10:58 TEST CANCELLED PER NURSE/DOCTOR; PER MERLY GARCIA RN AT [facility]; [place]; 01/10/2020 10:58. Result Comment: This is a corrected result. Previous value was 94, verified at 01/10/2020 10:48 Performed By: #### C BCDF #### [address] [place] [address] Monocytes (Bld) [#/Vol] Canceled Normal 0.10 - 1.00 [facility] [place] Comment on above: Order Comment: TEST CBC AND DIFFERENTIAL WAS CANCELLED, 01/10/2020 10:58 TEST CANCELLED PER NURSE/DOCTOR; PER MERLY GARCIA RN AT [facility]; [place]; 01/10/2020 10:58. Result Comment: This is a corrected result. Previous value was 10.3, verified at 01/10/2020 10:48 Performed By: #### C BCDF #### [address] [place] [address] Result Comment: This is a corrected result. Previous value was 0.34, verified at 01/10/2020 10:48 Neutrophils (Bld) [#/Vol] Canceled Normal 1.20 - 7.70 [facility] [place] Comment on above: Order Comment: TEST CBC AND DIFFERENTIAL WAS CANCELLED, 01/10/2020 10:58 TEST CANCELLED PER NURSE/DOCTOR; PER MERLY GARCIA RN AT [facility]; [place]; 01/10/2020 10:58. Result Comment: This is a corrected result. Previous value was 2.12, verified at 01/10/2020 10:48 Performed By: #### C BCDF #### [address] [place] [address] Neutrophils/100 WBC (Bld) Canceled Normal 40.0 - 80.0 [facility] [place] Comment on above: Order Comment: TEST CBC AND DIFFERENTIAL WAS CANCELLED, 01/10/2020 10:58 TEST CANCELLED PER NURSE/DOCTOR; PER MERLY GARCIA RN AT [facility]; [place]; 01/10/2020 10:58. Result Comment: This is a corrected result. Previous value was 64.3, verified at 01/10/2020 10:48 Performed By: #### C BCDF #### [address] [place] [address] Platelets (Bld) [#/Vol] Canceled Normal 150 - 450 [facility] Comment on above: Order Comment: TEST CBC AND DIFFERENTIAL WAS CANCELLED, 01/10/2020 10:58 TEST CANCELLED PER NURSE/DOCTOR; PER MERLY GARCIA RN AT [facility]; [place]; 01/10/2020 10:58. Result Comment: This is a corrected result. Previous value was 62, verified at 01/10/2020 10:48 Performed By: #### C BCDF #### [address] [place] [address] RBC (Bld) [#/Vol] Canceled Normal 4.50 - 5.90 [facility] Comment on above: Order Comment: TEST CBC AND DIFFERENTIAL WAS CANCELLED, 01/10/2020 10:58 TEST CANCELLED PER NURSE/DOCTOR; PER MERLY GARCIA RN AT [facility]; [place]; 01/10/2020 10:58. Result Comment: This is a corrected result. Previous value was 4.43, verified at 01/10/2020 10:48 Performed By: #### C BCDF #### [address] [place] [address] WBC (Bld) [#/Vol] Canceled Normal 4.4 - 11.3 [facility] Comment on above: Order Comment: TEST CBC AND DIFFERENTIAL WAS CANCELLED, 01/10/2020 10:58 TEST CANCELLED PER NURSE/DOCTOR; PER MERLY GARCIA RN AT [facility]; [place]; 01/10/2020 10:58. Result Comment: This is a corrected result. Previous value was 3.3, verified at 01/10/2020 10:48 Performed By: #### C BCDF #### [address] [place] [address] COMPREHENSIVE PANELon 2019 Albumin [Mass/Vol] Canceled Normal [facility] Comment on above: Order Comment: TEST COMPREHENSIVE PANEL WAS CANCELLED, 01/10/2020 10:58 TEST CANCELLED PER NURSE/DOCTOR; PER MERLY GARCIA RN AT [facility]; [place]; 01/10/2020 10:58. Performed By: #### C MP #### [address] [place] [address] [facility] [address] [place] [address] ALP [Catalytic activity/Vol] Canceled Normal [facility] [place] Comment on above: Order Comment: TEST COMPREHENSIVE PANEL WAS CANCELLED, 01/10/2020 10:58 TEST CANCELLED PER NURSE/DOCTOR; PER MERLY GARCIA RN AT [facility]; [place]; 01/10/2020 10:58. Performed By: #### C MP #### [address] [place] [address] [place] [address] ALT [Catalytic activity/Vol] Canceled Normal [facility] [place] Comment on above: Order Comment: TEST COMPREHENSIVE PANEL WAS CANCELLED, 01/10/2020 10:58 TEST CANCELLED PER NURSE/DOCTOR; PER MERLY GARCIA RN AT [facility]; [place]; 01/10/2020 10:58. Result Comment: Wendy ents treated with Sulfasalazine may generate falsely decreased results for ALT. Performed By: #### C MP #### [address] [place] [address] [place] [address] Anion gap [Moles/Vol] Canceled Normal [facility] [place] Comment on above: Order Comment: TEST COMPREHENSIVE PANEL WAS CANCELLED, 01/10/2020 10:58 TEST CANCELLED PER NURSE/DOCTOR; PER MERLY GARCIA RN AT [facility]; [place]; 01/10/2020 10:58. Performed By: #### C MP #### [address] [place] [address] [place] [address] AST [Catalytic activity/Vol] Canceled Normal [facility] [place] Comment on above: Order Comment: TEST COMPREHENSIVE PANEL WAS CANCELLED, 01/10/2020 10:58 TEST CANCELLED PER NURSE/DOCTOR; PER MERLY GARCIA RN AT [facility]; [place]; 01/10/2020 10:58. Performed By: #### C MP #### [address] [place] [address] [place] [address] Bilirubin [Mass/Vol] Canceled Normal [facility] [place] Comment on above: Order Comment: TEST COMPREHENSIVE PANEL WAS CANCELLED, 01/10/2020 10:58 TEST CANCELLED PER NURSE/DOCTOR; PER MERLY GARCIA RN AT [facility]; [place]; 01/10/2020 10:58. Performed By: #### C MP #### [address] [place] [address] [place] [address] Calcium [Mass/Vol] Canceled Normal [facility] Comment on above: Order Comment: TEST COMPREHENSIVE PANEL WAS CANCELLED, 01/10/2020 10:58 TEST CANCELLED PER NURSE/DOCTOR; PER MERLY GARCIA RN AT [facility]; [place]; 01/10/2020 10:58. Performed By: #### C MP #### [address] [place] [address] [place] [address] Chloride [Moles/Vol] Canceled Normal [facility] [place] Comment on above: Order Comment: TEST COMPREHENSIVE PANEL WAS CANCELLED, 01/10/2020 10:58 TEST CANCELLED PER NURSE/DOCTOR; PER MERLY GARCIA RN AT [facility]; [place]; 01/10/2020 10:58. Performed By: #### C MP #### [address] [place] [address] [place] [address] Creatinine [Mass/Vol] Canceled Normal [facility] [place] Comment on above: Order Comment: TEST COMPREHENSIVE PANEL WAS CANCELLED, 01/10/2020 10:58 TEST CANCELLED PER NURSE/DOCTOR; PER MERLY GARCIA RN AT [facility]; [place]; 01/10/2020 10:58. Performed By: #### C MP #### [address] [place] [address] [place] [address] GFR- AM. Canceled Normal [facility] [place] Comment on above: Order Comment: TEST COMPREHENSIVE PANEL WAS CANCELLED, 01/10/2020 10:58 TEST CANCELLED PER NURSE/DOCTOR; PER MERLY GARCIA RN AT [facility]; [place]; 01/10/2020 10:58. Result Comment: CALC ULATIONS OF ESTIMATED GFR ARE PERFORMED USING THE MDRD STUDY EQUATION FOR THE IDMS-TRACEABLE CREATININE METHODS. CLIN CHEM 2007;53:766-72 Performed By: #### C MP #### [address] [place] [address] [place] [address] GFR-NON AM. Canceled Normal [facility] Comment on above: Order Comment: TEST COMPREHENSIVE PANEL WAS CANCELLED, 01/10/2020 10:58 TEST CANCELLED PER NURSE/DOCTOR; PER MERLY GARCIA RN AT [facility]; [place]; 01/10/2020 10:58. Performed By: #### C MP #### [address] [place] [address] [place] [address] Glucose [Mass/Vol] Canceled Normal [facility] Comment on above: Order Comment: TEST COMPREHENSIVE PANEL WAS CANCELLED, 01/10/2020 10:58 TEST CANCELLED PER NURSE/DOCTOR; PER MERLY GARCIA RN AT [facility]; [place]; 01/10/2020 10:58. Performed By: #### C MP #### [address] [place] [address] [place] [address] HCO3 (Bld) [Moles/Vol] Canceled Normal [facility] Comment on above: Order Comment: TEST COMPREHENSIVE PANEL WAS CANCELLED, 01/10/2020 10:58 TEST CANCELLED PER NURSE/DOCTOR; PER MERLY GARCIA RN AT [facility]; [place]; 01/10/2020 10:58. Performed By: #### C MP #### [address] [place] [address] [place] [address] Potassium [Moles/Vol] Canceled Normal [facility] [place] Comment on above: Order Comment: TEST COMPREHENSIVE PANEL WAS CANCELLED, 01/10/2020 10:58 TEST CANCELLED PER NURSE/DOCTOR; PER MERLY GARCIA RN AT [facility]; [place]; 01/10/2020 10:58. Performed By: #### C MP #### [address] [place], [facility] [place] [address] Protein [Mass/Vol] Canceled Normal [facility] Comment on above: Order Comment: TEST COMPREHENSIVE PANEL WAS CANCELLED, 01/10/2020 10:58 TEST CANCELLED PER NURSE/DOCTOR; PER MERLY GARCIA RN AT [facility]; [place]; 01/10/2020 10:58. Performed By: #### C MP #### [address] [place], [address] [place] [id number] Sodium [Moles/Vol] Canceled Normal [facility] Comment on above: Order Comment: TEST COMPREHENSIVE PANEL WAS CANCELLED, 01/10/2020 10:58 TEST CANCELLED PER NURSE/DOCTOR; PER MERLY GARCIA RN AT [facility]; [place]; 01/10/2020 10:58. Performed By: #### C MP #### [address] [place], [address] [place] [id number] Urea nitrogen [Mass/Vol] Canceled Normal [facility] [place] Comment on above: Order Comment: TEST COMPREHENSIVE PANEL WAS CANCELLED, 01/10/2020 10:58 TEST CANCELLED PER NURSE/DOCTOR; PER MERLY GARCIA RN AT [facility]; [place]; 01/10/2020 10:58. Performed By: #### C MP #### [address] [place], [address] [place] [id number] Clinic Note - Heme Onc-Follo w Up Visiton 01-10-2020 Clinic Note - Heme Onc-Follow Up Visit This report has been cancelled. Normal [facility] FOLATE, SERUMon 01-10-2020 Folate [Mass/Vol] Canceled Normal [facility] Comment on above: Order Comment: TEST FOLATE, SERUM WAS CANCELLED, 01/10/2020 10:58 TEST CANCELLED PER NURSE/DOCTOR; PER MERLY GARCIA RN AT [facility]; [place]; 01/10/2020 10:58. Result Comment: Low <3.4 Borderline 3.4-5.0 Normal >5.0 . Patients receiving more than 5 mg/day of biotin may have interference in test results. A sample should be taken no sooner than eight hours after previous dose. Contact the testing laboratory for additional information. Performed By: #### F OLA2 #### [address] [place] [address] HEMOGLOBIN A1Con 01-10-2020 HbA1c (Bld) [Mass fraction] Canceled Normal [facility] [place] Comment on above: Order Comment: TEST HEMOGLOBIN A1C WAS CANCELLED, 01/10/2020 10:58 TEST CANCELLED PER NURSE/DOCTOR; PER MERLY GARCIA, [place] AT [facility]; [place]; 01/10/2020 10:58. Result Comment: Diag nosis of Diabetes-Adults Non-Diabetic: < or = 5.6% Increased risk for developing diabetes: 5.7-6.4% Diagnostic of diabetes: > or = 6.5% . Monitoring of Diabetes Age (y) Therapeutic Goal (%) Adults: >18 <7.0 Pediatrics: 13-18 <7.5 7-12 <8.0 0- 6 7.5-8.5 [place] [employer]. Diabetes Care 33(S1), Jul 2009. Performed By: #### H BA1E #### [address] [place] [address] IRON + TIBCon 01-10-2020 % SATURATION Canceled Normal [facility] [place] Comment on above: Order Comment: TEST IRON + TIBC WAS CANCELLED, 01/10/2020 10:58 TEST CANCELLED PER NURSE/DOCTOR; PER MERLY GARCIA RN AT [facility]; [place]; 01/10/2020 10:58. Performed By: #### I RONT #### [address] [place] [address] Iron [Mass/Vol] Canceled Normal [facility] [place] Comment on above: Order Comment: TEST IRON + TIBC WAS CANCELLED, 01/10/2020 10:58 TEST CANCELLED PER NURSE/DOCTOR; PER MERLY GARCIA RN AT [facility]; [place]; 01/10/2020 10:58. Performed By: #### I RONT #### [address] [place] [address] TIBC Canceled Normal [facility] Comment on above: Order Comment: TEST IRON + TIBC WAS CANCELLED, 01/10/2020 10:58 TEST CANCELLED PER NURSE/DOCTOR; PER MERLY GARCIA RN AT [facility]; [place]; 01/10/2020 10:58. Performed By: #### I RONT #### [address] [place] [address] LIPID PANEL (CORONARY RISK 2 )on 01-10-2020 Cholesterol [Mass/Vol] Canceled Normal [facility] Comment on above: Order Comment: TEST LIPID PANEL (CORONARY RISK 2) WAS CANCELLED, 01/10/2020 10:58 TEST CANCELLED PER NURSE/DOCTOR; PER MERLY GARCIA RN AT [facility]; [place]; 01/10/2020 10:58. Result Comment: . AGE DESIRABLE BORDERLINE HIGH HIGH 0-19 Y 0 - 169 170 - 199 >/= 200 20-24 Y 0 - 189 190 - 224 >/= 225 >24 Y 0 - 199 200 - 239 >/= 240 All ranges are based on fasting samples. Specific therapeutic targets will vary based on patient-specific cardiac risk. . Pediatric guidelines reference:Pediatrics 2011, 128(S5). Adult guidelines reference: NCEP ATPIII Guidelines, PHILIP 2001, 258:2486-97 . Venipuncture immediately after or during the administration of Metamizole may lead to falsely low results. Testing should be performed immediately prior to Metamizole dosing. Performed By: #### L IPID #### [address] [place] [address] Cholesterol in HDL [Mass/Vol] Canceled Normal [facility] Comment on above: Order Comment: TEST LIPID PANEL (CORONARY RISK 2) WAS CANCELLED, 01/10/2020 10:58 TEST CANCELLED PER NURSE/DOCTOR; PER MERLY GARCIA RN AT [facility]; [place]; 01/10/2020 10:58. Result Comment: . AGE VERY LOW LOW NORMAL HIGH 0-19 Y < 35 < 40 40-45 ---- 20-24 Y ---- < 40 >45 ---- >24 Y ---- < 40 40-60 >60 . Performed By: #### L IPID #### [address] [address] Cholesterol in LDL [Mass/Vol] Canceled Normal [facility] Comment on above: Order Comment: TEST LIPID PANEL (CORONARY RISK 2) WAS CANCELLED, 01/10/2020 10:58 TEST CANCELLED PER NURSE/DOCTOR; PER MERLY GARCIA RN AT [facility]; [place]; 01/10/2020 10:58. Result Comment: . NEAR BORD AGE DESIRABLE OPTIMAL HIGH HIGH VERY HIGH 0-19 Y 0 - 109 --- 110-129 >/= 130 ---- 20-24 Y 0 - 119 --- 120-159 >/= 160 ---- >24 Y 0 - 99 100-129 130-159 160-189 >/=190 . Performed By: #### L IPID #### [address] [address] Cholesterol in VLDL [Mass/Vol] Canceled Normal [facility] Comment on above: Order Comment: TEST LIPID PANEL (CORONARY RISK 2) WAS CANCELLED, 01/10/2020 10:58 TEST CANCELLED PER NURSE/DOCTOR; PER MERLY GARCIA RN AT [facility]; [place]; 01/10/2020 10:58. Performed By: #### L IPID #### [address] [address] Cholesterol.total/Gloria sterol in HDL [Mass ratio] Canceled Normal [facility] Comment on above: Order Comment: TEST LIPID PANEL (CORONARY RISK 2) WAS CANCELLED, 01/10/2020 10:58 TEST CANCELLED PER NURSE/DOCTOR; PER MERLY GARCIA RN AT [facility]; [place]; 01/10/2020 10:58. Performed By: #### L IPID #### [address] [address] NON-HDL CHOLESTEROL Canceled Normal [facility] Comment on above: Order Comment: TEST LIPID PANEL (CORONARY RISK 2) WAS CANCELLED, 01/10/2020 10:58 TEST CANCELLED PER NURSE/DOCTOR; PER MERLY GARCIA RN AT [facility]; [place]; 01/10/2020 10:58. Result Comment: AGE DESIRABLE BORDERLINE HIGH HIGH VERY HIGH 0-19 Y 0 - 119 120 - 144 >/= 145 >/= 160 20-24 Y 0 - 149 150 - 189 >/= 190 ---- >24 Y 30 MG/DL ABOVE LDL CHOLESTEROL GOAL . Performed By: #### L IPID #### [address] [address] Triglyceride [Mass/Vol] Canceled Normal [facility] Comment on above: Order Comment: TEST LIPID PANEL (CORONARY RISK 2) WAS CANCELLED, 01/10/2020 10:58 TEST CANCELLED PER NURSE/DOCTOR; PER MERLY GARCIA RN AT [facility]; [place]; 01/10/2020 10:58. Result Comment: . AGE DESIRABLE BORDERLINE HIGH HIGH VERY HIGH 0 D-90 D 19 - 174 ---- ---- ---- 91 D- 9 Y 0 - 74 75 - 99 >/= 100 ---- 10-19 Y 0 - 89 90 - 129 >/= 130 ---- 20-24 Y 0 - 114 115 - 149 >/= 150 ---- >24 Y 0 - 149 150 - 199 200- 499 >/= 500 . Venipuncture immediately after or during the administration of Metamizole may lead to falsely low results. Testing should be performed immediately prior to Metamizole dosing. Performed By: #### L IPID #### [address] [address] VITAMIN B12on 01-10-2020 Cobalamin (Vitamin B12) [Mass/Vol] Canceled Normal [facility] Comment on above: Order Comment: TEST VITAMIN B12 WAS CANCELLED, 01/10/2020 10:58 TEST CANCELLED PER NURSE/DOCTOR; PER MERLY GARCIA RN AT [facility]; [place]; 01/10/2020 10:58. Performed By: #### V TB12 #### [address] [address] COMPREHENSIVE PANELon 2018 Albumin [Mass/Vol] 4.0 g/dL Normal 3.4 - 5.0 [facility] Comment on above: Performed By: #### C MP #### [facility] [address] [place] [address] ALP [Catalytic activity/Vol] 55 U/L Normal 33 - 120 [facility] Comment on above: Performed By: #### C MP #### [facility] [address] [place] [address] ALT [Catalytic activity/Vol] 25 U/L Normal 10 - 52 [facility] Comment on above: Result Comment: Wendy ents treated with Sulfasalazine may generate falsely decreased results for ALT. Performed By: #### C MP #### [facility] [address] [place] [address] Anion gap [Moles/Vol] 12 mmol/L Normal 10 - 20 [facility] Comment on above: Performed By: #### C MP #### [facility] [address] [place] [address] AST [Catalytic activity/Vol] 33 U/L Normal 9 - 39 [facility] Comment on above: Performed By: #### C MP #### [facility] [address] [place] [address] Bilirubin [Mass/Vol] 1.3 mg/dL High 0.0 - 1.2 [facility] Comment on above: Performed By: #### C MP #### [facility] [address] [place] [address] Calcium [Mass/Vol] 9.3 mg/dL Normal 8.6 - 10.6 [facility] Comment on above: Performed By: #### C MP #### [facility] [address] [place] [address] Chloride [Moles/Vol] 102 mmol/L Normal 98 - 107 [facility] Comment on above: Performed By: #### C MP #### [facility] [address] [place] [address] Creatinine [Mass/Vol] 1.22 mg/dL Normal 0.50 - 1.30 [facility] Comment on above: Performed By: #### C MP #### [facility] [address] [place] [address] GFR- AM. >60 Normal >60 [facility] Comment on above: Result Comment: CALC ULATIONS OF ESTIMATED GFR ARE PERFORMED USING THE MDRD STUDY EQUATION FOR THE IDMS-TRACEABLE CREATININE METHODS. CLIN CHEM 2007;53:766-72 Performed By: #### C MP #### [facility] [address] [place] [address] GFR-NON AM. >60 Normal >60 [facility] Comment on above: Performed By: #### C MP #### [facility] [address] [place] [address] Glucose [Mass/Vol] 107 mg/dL High 74 - 99 [facility] Comment on above: Performed By: #### C MP #### [facility] [address] [place] [address] HCO3 (Bld) [Moles/Vol] 26 mmol/L Normal 21 - 32 [facility] Comment on above: Performed By: #### C MP #### [facility] [address] [place] [address] Potassium [Moles/Vol] 5.1 mmol/L Normal 3.5 - 5.3 [facility] Comment on above: Performed By: #### C MP #### [facility] [address] [place] [address] Protein [Mass/Vol] 7.2 g/dL Normal 6.4 - 8.2 [facility] Comment on above: Performed By: #### C MP #### [facility] [address] [place] [address] Sodium [Moles/Vol] 135 mmol/L Low 136 - 145 [facility] Comment on above: Performed By: #### C MP #### [facility] [address] [place] [address] Urea nitrogen [Mass/Vol] 25 mg/dL High 6 - 23 [facility] Comment on above: Performed By: #### C MP #### [facility] [address] [place] [address] HEMOGLOBIN A1Con 06-08-2019 HbA1c (Bld) [Mass fraction] 97 MG/DL Normal [facility] Comment on above: Performed By: #### H BA1E #### [facility] [address] [place] [address] HbA1c (Bld) [Mass fraction] 5.0 % Normal [facility] Comment on above: Result Comment: Diag nosis of Diabetes-Adults Non-Diabetic: < or = 5.6% Increased risk for developing diabetes: 5.7-6.4% Diagnostic of diabetes: > or = 6.5% . Monitoring of Diabetes Age (y) Therapeutic Goal (%) Adults: >18 <7.0 Pediatrics: 13-18 <7.5 7-12 <8.0 0- 6 7.5-8.5 [place] [employer]. Diabetes Care 33(S1), Jul 2009. Performed By: #### H BA1E #### [facility] [address] [place] [address] LDHon 06-08-2019 LDH 127 U/L Normal 84 - 246 [facility] Comment on above: Performed By: #### L DH #### [facility] [address] [place] [address] CBC AND DIFFERENTIALon 06-07 Basophils (Bld) [#/Vol] 0.02 10*3/uL Normal 0.00 - 0.1 0 [facility] Comment on above: Performed By: #### C BCDF #### [facility] [address] [place] [address] Basophils/100 WBC (Bld) 0.5 % Normal 0.0 - 2.0 [facility] Comment on above: Performed By: #### C BCDF #### [facility] [address] [place] [address] Eosinophils (Bld) [#/Vol] 0.18 10*3/uL Normal 0.00 - 0.70 [facility] Comment on above: Performed By: #### C BCDF #### [facility] [address] [place] [address] Eosinophils/100 WBC (Bld) 4.9 % Normal 0.0 - 6.0 [facility] Comment on above: Performed By: #### C BCDF #### [facility] [address] [place] [address] Erythrocyte distribution width (RBC) [Ratio] 13.4 % Normal 11.5 - 14.5 [facility] Comment on above: Performed By: #### C BCDF #### [facility] [address] [place] [address] Hematocrit (Bld) [Volume fraction] 42.3 % Normal 41.0 - 52.0 [facility] Comment on above: Performed By: #### C BCDF #### [facility] [address] [place] [address] Hemoglobin (Bld) [Mass/Vol] 14.2 g/dL Normal 13.5 - 17.5 [facility] Comment on above: Performed By: #### C BCDF #### [facility] [address] [place] [address] Lymphocytes (Bld) [#/Vol] 0.64 10*3/uL Low 1.20 - 4.80 [facility] Comment on above: Performed By: #### C BCDF #### [facility] [address] [place] [address] Lymphocytes/100 WBC (Bld) 17.6 % Normal 13.0 - 44.0 [facility] Comment on above: Performed By: #### C BCDF #### [facility] [address] [place] [address] MCHC (RBC) [Mass/Vol] 33.6 g/dL Normal 32.0 - 36.0 [facility] Comment on above: Performed By: #### C BCDF #### [facility] [address] [place] [address] MCV (RBC) [Entitic vol] 94 fL Normal 80 - 100 [facility] Comment on above: Performed By: #### C BCDF #### [facility] [address] [place] [address] Monocytes (Bld) [#/Vol] 0.48 10*3/uL Normal 0.10 - 1.0 0 [facility] Comment on above: Performed By: #### C BCDF #### [facility] [address] [place] [address] Monocytes/100 WBC (Bld) 13.2 % Normal 2.0 - 10.0 [facility] Comment on above: Performed By: #### C BCDF #### [facility] [address] [place] [address] Neutrophils (Bld) [#/Vol] 2.32 10*3/uL Normal 1.20 - 7.70 [facility] Comment on above: Result Comment: Perc ent differential counts (%) should be interpreted in the context of the absolute cell counts (cells/L). Performed By: #### C BCDF #### [facility] [address] [place] [address] Neutrophils/100 WBC (Bld) 63.8 % Normal 40.0 - 80.0 [facility] Comment on above: Performed By: #### C BCDF #### [facility] [address] [place] [address] Platelets (Bld) [#/Vol] 60 10*3/uL Low 150 - 450 [facility] Comment on above: Performed By: #### C BCDF #### [facility] [address] [place] [address] RBC (Bld) [#/Vol] 4.50 x10E12/L Normal 4.50 - 5.90 [facility] Comment on above: Performed By: #### C BCDF #### [facility] [address] [place] [address] WBC (Bld) [#/Vol] 3.6 10*3/uL Low 4.4 - 11.3 [facility] Comment on above: Performed By: #### C BCDF #### [facility] [address] [place] [address] Clinic Note - Heme Onc-Follo w Up Visiton 06-07-2019 Clinic Note - Heme Onc-Follow Up Visit Patient Visit Information: Visit Type: Follow Up Visit History of Present Illness: Chief Complaint: leukopenia management Interval History: Mr. Layton is a 38 man with leukopenia who has periodic testing of his blood sugar, cholesterol, CBC, all due to his morbid obesity. He was incidentally found to have a low platelet count. Since his last visit, he reports that he has been well. He did have an episode of lightheadedness that lasted for 2 days. Per patient it was related to blood sugar. He states all symptoms resolved with a candy bar. Denies bleeding, bruising. denies fever/chills, night sweats, headaches, visual disturbances, hearing changes, chest pain, cough, sputum production, hemoptysis, palpitations, syncope/near-syncope, constipation, abdominal pain, nausea, vomiting, diarrhea, mouth sores, melena, hematochezia, dysuria, hematuria, noticeable lymphadenopathy, rashes, and dizziness. Patient notes he is still looking for bariatric surgery options and he has found his new insurance provider will not cover. Patient is determined to find an option for himself with or without insurance coverage. Review of Systems: Review of Systems: Constitutional denies fevers, chills, night sweats Respiratory: no cough, dyspnea on exertion, wheezing, pleuritic pain cardiac: no chest pain, no palpitations, no exertional pain, no leg swelling Gastrointestinal: no abdominal pain, no diarrhea, no constipation, no hematochezia genitourinary: no dysuria, no hematuria Skin: denies rash, denies itching Heme: denies easy bleeding or bruising, nauseao swollen glands Immunologic: see allergies System ReviewAll other systems have been reviewed and are negative for complaint. Allergies and Intolerances: Allergies: NKDA: Active spider bites: Environment, Swelling/Edema, Active Bee Stings: Environment, Swelling/Edema, Active Outpatient Medication Profile: * Patient Currently Takes Medications as of 07-Dec-2018 11:23 documented in Structured Notes magnesium oxide 500 mg oral tablet: 1 tab(s) orally once a day CeleBREX: orally once a day lisinopril-hydroCHLORO thiazide 20 mg-12.5 mg oral tablet: 1 tab(s) orally once a day carvedilol 6.25 mg oral tablet: 1 tab(s) orally 2 times a day Turmeric 500 mg oral capsule: 1 cap(s) orally once a day Coreg 6.25 mg oral tablet: 1 tab(s) orally 2 times a day Family History: No Family History items are recorded in the problem list. Social History: Smoking Status: former smoker (1) Tobacco Use: history of abuse Alcohol Use: occasionally(1) Drug Use: denies (1) Additional History: Reviewed and updated as appropriate. Family history: no history of blood cancers Two brothers - one with history of pneumonia and has lung disease, anothe had appendictis Past Medical History: hypertension - history of 1997 sleep apnea - on cpap Past surgical history; broken left hip, femur in 200 - required sugical fixation. 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 Lives in a room wiht his - on one story. rare alcohol (one a month.), used to smoke. 1/2-1ppd for 16 years. Nothing in 4 yeasr. No other drug use. (1) Performance: Karnofsky Score (Age >/ 16 yrs): 80- Normal activity with effort Vitals and Measurements: Vitals: Temp: 35.9 HR: 84 RR: 20 BP: 137/83 SPO2%: 98 Measurements: HT(cm): 203.2 WT(kg): 309.7 BSA: 4.18 BMI: 75 Last 3 Weights & Heights: Date: Weight/Scale Type:Height: 07-Jun-2019 11:27464.7 kg / standing kpyyb434.2 cm 07-Dec-2018 11:07616.8 kg 203.2 cm 15-Jun-2018 13:18591.8 kg / standing .2 cm Physical Exam: Constitutional: morbidly obese man, ambulatory. sitting on the exam table. Eyes: clear sclera, conjunctival normal, pupils equal ENMT: mucous membranes moist, no apparent injury, no lesions seen Respiratory/Thorax: mouth breather Cardiovascular: Regular, rate and rhythm, Gastrointestinal: obese - I am unable to assess for hepatosplenomegaly. He is non-tender Musculoskeletal: ROM intact, no joint swelling, normal strength Extremities: normal extremities, no edema. Lymphatic: No significant cervical, supraclavicular, lymphadenopathy Psychological: Appropriate mood and behavior Skin: Warm and dry, no lesions, on arms, torso. Legs with chronic venous stasis changes Lab Results: Results I have reviewed these laboratory results: Complete Blood Count + Differential 07-Jun-2019 11:00:00 ResultValue White Blood Cell Count 3.6 L Red Blood Cell Count 4.50 HGB 14.2 HCT 42.3 MCV 94 MCHC 33.6 PLT 60 L RDW-CV 13.4 Neutrophil % 63.8 Lymphocyte % 17.6 Monocyte % 13.2 Eosinophil % 4.9 Basophil % 0.5 Neutrophil Count 2.32 Lymphocyte Count 0.64 L Monocyte Count 0.48 Eosinophil Count 0.18 Basophil Count 0.02 Assessment and Plan: Assessment and Plan: Assessment: Mr. Layton is a 38 yo morbidly obese man with mild leukopenia and mild to moderate thrombocytopenia without symptoms. Currently, his workup is suggestive of splenomegaly as the cause, w/o clear etiology for splenomegaly. Flow cytometry actually found a small number of myeloblast in the peripheral blood - concerning for myeloproliferative neoplasm or myelodysplastic syndrome as a potential cause - but with a normal immunophenotype As a results we had recommended a bone marrow biopsy - however, due to Mr. Layton's obesity, we have been told that IR tables are not able to fit, and we have no personnel. One year after initial presentation, we repeated flow cytometry - the abnormal circulating CD34 positive population remained - but was not increased. There remained no abnormal immunophenotype. At this point, we are likely limited by observation. To date, his platelets have been stable, and we will look to move his follow up to q6 months. Next visit will be Spring 2019. Ideally, I would like a bone marrow biopsy to completely r/o underlying marrow disorder - this cannot be done with his obesity at this time. His stability is encouraging, and modest improvement in platelets with weight loss continues to suggest that medical weight loss program would be the best chance at improve his health. Plan: Thrombocytopenia, favoring due to splenomegaly: Monitoring: - every 6 month or as clinically indicated CBC, CMP Note Recipients: Bren Albert MD - [phone] Select Yes when ready to send to Provider(s) Listed Above: Note sent to providers named above Attestation: Visit Level: Total Time Spent: 20 minute(s) Counseling & Coordination of Care: more than 50% of total time Cosign/Attestation: Attestation Required: Role: Scribe Scribing on behalf of (Provider name): Dr. Sheng Arias MD Scribe Only - Scribe Attestation: I am scribing for, and in the presence of the provider. Scribed Provider Only - Attestation to Scribe: The documentation recorded by the individual acting as Scribe, in my presence, accurately and completely reflects the service(s) I personally performed and the decisions made by me. Comments/ Additional Findings: All medical record entries made by the Scribe were at my direction and personally dictated by me. I have reviewed the chart and agree that the record accurately reflects my personal performance of the history, physical exam, assessment and plan. I also reviewed documentation by the medical technologist chemistry for accuracy and updated sections as needed to ensure accuracy of the current evaluation and plan. Electronic Signatures: Jace Felipe (Scribe) (Entered 07-Jun-2019 12:31) Entered: History of Present Illness, Review of Systems, Performance Assessments, Vitals and Measurements, Physical Exam, Results, Assessment and Plan, Attestation Sheng Arias) (Signed 10-Jun-2019 20:33) Authored: Patient Visit Information, History of Present Illness, Review of Systems, Allergies and Outpatient Medication Profile, Problem List, Social History, Performance Assessments, Vitals and Measurements, Physical Exam, Results, Assessment and Plan, To Send Document via Auto Fax, Attestation Last Updated: 10-Jun-2019 20:33 by Sheng Arias) References: 1. Data Referenced From Clinic Note - Heme Onc-Follow Up Visit 07-Dec-2018 11:56 Normal [facility] Clinic Note - Intakeon 06-07 Clinic Note - Intake Patient Visit Information: Visit TypeFollow Up Visit Patient StatesBlood work results Source of Informationpatient Accompanied byparents Admission Information: Admission Since Last VisitNo Vital Signs: Temp (degrees C)35.9 degrees C Temperatureskin Heart Rate (beats/min)84 beats per minute Respiration (breaths/min)20 breath per minute BP Systolic (mm Hg)137 mmHg BP Diastolic (mm Hg)83 mmHg BP Mean (mm Hg)101 mmHg Height in cm203.2 centimeter(s) Height Methodstated Heightstanding Weight in kg309.7 kilogram(s) Weight Methodstanding scale BMI (kg/m2)75 BSA (m2)4.18 Last 3 Weights & HeightsDate: Weight/Scale Type:Height: 07-Dec-2018 11:69373.8 kg 203.2 cm 15-Jun-2018 13:43299.8 kg / standing .2 cm SpO2 (%)98 % SpO2 Patient Onroom air Pain Screening: Patient States Painyes Current Pain Score (0-10)4 Pain Description/Locationle ft hip and bilateral knees Pain Scale UsedNumeric (0-10) Currently on a Pain Regimenyes Adequately Controlledyes Health Screening: Colonoscopy ResultsHas not had one Seed Pelleter for intimate exam offered to patient: Patient hasaccepted Seed Pelleter is afamily member/friend Allergies: NKDA: Active spider bites: Environment, Swelling/Edema, Active Bee Stings: Environment, Swelling/Edema, Active Outpatient Medication Profile: * Patient Currently Takes Medications as of 07-Dec-2018 11:23 documented in Structured Notes magnesium oxide 500 mg oral tablet: 1 tab(s) orally once a day CeleBREX: orally once a day lisinopril-hydroCHLORO thiazide 20 mg-12.5 mg oral tablet: 1 tab(s) orally once a day carvedilol 6.25 mg oral tablet: 1 tab(s) orally 2 times a day Turmeric 500 mg oral capsule: 1 cap(s) orally once a day Coreg 6.25 mg oral tablet: 1 tab(s) orally 2 times a day Notification: NotificationsAnnual Screens Due Dates Advanced Directives: December 07, 2019 Family Violence: December 07, 2019 Depression: December 07, 2019 Substance Use - Alcohol: December 07, 2019 Substance Use - Drugs: December 07, 2019 Nutrition: December 07, 2019 Learning: December 07, 2019 Falls: Have you fallen in the last 6 monthsno Do you have a fear of fallingno Do you feel you need assistanceno Is the patient using an assistive deviceno Electronic Signatures: Hellen Nath) (Signed 07-Jun-2019 11:54) Authored: Patient Visit Information, Vital Signs, Health Screening, Seed Pelleter, Allergies, Outpatient Medication Profile, Adult Admission Risk Screen Last Updated: 07-Jun-2019 11:54 by Hellen Nath) Normal [facility] Vital Signs Date Time Vital Sign Value Performing Clinician Nic blanchard 04-07-2022 11:15-0400 Body temperature 97.7 [degF] Garland Morocho DPM Work Phone: [facility] 04-07-2022 11:15-0400 Diastolic blood pressure 69 mm[Hg] Garland Morocho DPM Work Phone: [facility] [employer] 04-07-2022 11:15-0400 Heart rate 68 /min Garland Morocho DPM Work Phone: [facility] [employer] 04-07-2022 11:15-0400 Respiratory rate 22 /min Garland Morocho DPM Work Phone: [facility] [employer] 04-07-2022 11:15-0400 Systolic blood pressure 146 mm[Hg] Garland Morocho DPM Work Phone: [facility] [employer] 02-03-2022 11:20-0400 Body temperature 99 [degF] Garland Morocho DPM Work Phone: [facility] [employer] 02-03-2022 11:20-0400 Diastolic blood pressure 75 mm[Hg] Garland [facility]ocho DPM [facility] 02-03-2022 11:20-0400 Heart rate 75 /min Garland Morocho DPM Work Phone: [facility] [employer] 02-03-2022 11:20-0400 Respiratory rate 26 /min Garland Morocho DPM Work Phone: [facility] [employer] 02-03-2022 11:20-0400 Systolic blood pressure 143 mm[Hg] Garland Morocho DPM [facility] 01-13-2022 12:05-0400 Body height 203.2 cm Garland Morocho DPM Work Phone: [facility] [employer] 01-13-2022 11:01-0400 Body temperature 97.39 [degF] Garland Morocho DPM Work Phone: [facility] [employer] 01-13-2022 11:01-0400 Diastolic blood pressure 75 mm[Hg] Garland Morocho DPM Work Phone: [facility] [employer] 01-13-2022 11:01-0400 Heart rate 77 /min Garland Morocho DPM Work Phone: [facility] [employer] 01-13-2022 11:01-0400 Respiratory rate 28 /min Garland Morocho DPM Work Phone: [facility] [employer] 01-13-2022 11:01-0400 Systolic blood pressure 127 mm[Hg] Garland Morocho DPM [facility] Phone[facility] [employer] [facility] 12-13-2021 11:00-0400 Respiratory rate 18 /min Barbara Urrutia MD Work Phone: [employer] 12-13-2021 09:06-0400 Body mass index (BMI) [Ratio] 78 kg/m2 Barbara Urrutia MD Work Phone: [employer] 12-13-2021 09:06-0400 Body temperature 98.01 [degF] Barbara Urrutia MD Work Phone: [employer] 12-13-2021 09:06-0400 Body weight 322.05 kg Barbara Urrutia MD Work Phone: [employer] 12-13-2021 09:06-0400 Diastolic blood pressure 80 mm[Hg] Barbara Urrutia MD Work Phone: [employer] 12-13-2021 09:06-0400 Heart rate 87 /min Barbara Urrutia MD Work Phone: [employer] 12-13-2021 09:06-0400 SaO2% (BldA) [Mass fraction] 94 % Barbara Urrutia MD Work Phone: [employer] 12-13-2021 09:06-0400 Systolic blood pressure 163 mm[Hg] Barbara Urrutia MD Work Phone: [employer] Encounters Encounter Date Encounter Type Care Provider Facility Start: 05-09-2024 ambulatory ANGELITO MAYS Facility: [facility] Start: 03-21-2024 ambulatory FRED Morgan y:[facility] Start: 02-08-2024 ambulatory FRED BELCHER Facilit y:[facility] Start: 01-18-2024 End: [facility]: 01-11-[facility]24 ambulatory FRED BELCHER Facilit y:[facility] Start: 12-14-2023 ambulatory FRED BELCHER Facilit y:[facility] Start: 10-12-2023 ambulatory ANGELITO MAYS Facility: [facility] Start: 08-10-2023 End: 08-12-2023 [facility] Start[facility] 07-27-2023 ambulatory FRED BELCHER Facilit y:[facility] Start: 07-06-2023 ambulatory FRED BELCHER Facilit y:[facility] Start: 04-07-2022 End: 04-07-2022 Subsequent hospital visit by physician Garland Morocho DPM Work Phone: [facility] Comment on above: Skin ulcer of left p retibial region with fat layer exposed (HCC) (Primary Dx); Lymphedema of both lower extremities; Elephantiasis nostra verrucosa; Stasis dermatitis of both legs Start: 02-03-2022 End: 02-03-2022 Subsequent hospital visit by physician Garland RATLIFFM Work Phone: [facility] Start: 01-13-2022 End: 01-13-2022 Subsequent hospital visit by physician Garland Morocho DPM Work Phone: [facility] Comment on above: Bacterial infection (Primary Dx) Start: 12-13-2021 End: 12-13-2021 Subsequent hospital visit by physician Milton Monterroso [employer] Work Phone: [facility] Laboratory Comment on above: Morbid obesity due t o excess calories (HCC); Essential hypertension; Left hip pain Start: 12-13-2021 End: 12-13-2021 Emergency department patient visit Barbara Urrutia MD Work Phone: [facility] ED Comment on above: Open wound of left k nee, leg, and ankle, initial encounter (Primary Dx); Lymphedema Start: 11-08-2021 End: 11-08-2021 ambulatory KIERSTEN MAXWELL Facility: Start: 05-03-2021 End: 05-03-2021 Subsequent hospital visit by physician Bianca Lynch [facility] Physical Therapy Comment on above: Arrived Start: 04-29-2021 End: 04-29-2021 Subsequent hospital visit by physician Nighat Gaona PTA [facility] Physical Therapy Comment on above: Arrived Start: 04-26-2021 End: 04-26-2021 Subsequent hospital visit by physician Nighat Gaona PTA [facility] Physical Therapy Comment on above: Arrived Start: 04-21-2021 End: 04-21-2021 Subsequent hospital visit by physician Bianca Lynch PTA [facility] Physical Therapy Comment on above: Arrived Start: 04-19-2021 End: 04-19-2021 Subsequent hospital visit by physician Nighat Gaona PTA [facility] Physical Therapy Comment on above: Arrived Start: 04-12-2021 End: 04-12-2021 Subsequent hospital visit by physician Bianca Lynch PTA [facility] Physical Therapy Comment on above: Arrived Start: 04-06-2021 End: 04-06-2021 Subsequent hospital visit by physician Sonia Jo PT [facility] Physical Therapy Comment on above: Arrived Start: 04-01-2021 End: 04-01-2021 Subsequent hospital visit by physician Bianca Lynch PTA [facility] Physical Therapy Comment on above: Arrived Start: 03-29-2021 End: 03-29-2021 Subsequent hospital visit by physician Nighat Gaona PTA [facility] Physical Therapy Start: 03-25-2021 End: 03-25-2021 Subsequent hospital visit by physician Sonia Jo PT [facility] Physical Therapy Comment on above: Arrived Start: 03-22-2021 End: 03-22-2021 Subsequent hospital visit by physician Nighat Gaona PTA [facility] Physical Therapy Comment on above: Arrived Start: 03-18-2021 End: 03-18-2021 Subsequent hospital visit by physician Nighat Gaona PTA [facility] Physical Therapy Comment on above: Arrived Start: 03-15-2021 End: 03-15-2021 Subsequent hospital visit by physician Bianca Lynch PTA [facility] Physical Therapy Comment on above: Arrived Start: 03-11-2021 End: 03-11-2021 Subsequent hospital visit by physician Bianca Lynch PTA [facility] Physical Therapy Comment on above: Arrived Start: 03-04-2021 End: 03-04-2021 Subsequent hospital visit by physician Sonia Jo PT [facility] Physical Therapy Comment on above: Arrived Start: 02-22-2021 End: 02-22-2021 Subsequent hospital visit by physician Nighat Gaona TIMERS INSPECTOR [facility] Physical Therapy Comment on above: Arrived Start: 02-18-2021 End: 02-18-2021 Subsequent hospital visit by physician Bianca Lynch TIMERS INSPECTOR [facility] Physical Therapy Comment on above: Arrived Start: 02-15-2021 End: 02-15-2021 Subsequent hospital visit by physician Nighat Gaona TIMERS INSPECTOR [facility] Physical Therapy Comment on above: Arrived Start: 02-11-2021 End: 02-11-2021 Subsequent hospital visit by physician Sonia Jo PT [facility] Physical Therapy Comment on above: Arrived Start: 01-13-2021 End: 01-13-2021 Subsequent hospital visit by physician [facility] Med Onc Lab Schedule [facility] MED ONC Comment on above: Thrombocytopenia (HC C); Other decreased white blood cell (WBC) count Start: 02-13-2020 End: 02-13-2020 Subsequent hospital visit by physician [facility] Covid Screening Schedule [facility] Covid Screening Comment on above: Fever, unspecified f ever cause; Body aches Procedures Date Procedure Procedure Detail Performing Clinician Start: 12-13-2021 Comprehensive metabo lic panel Milton Monterroso MOBILE UI DESIGNER - SAMPLE WEAVER Work Phone: Start: 12-13-2021 IMMATURE PLATELET FRACTION Milton Monterroso MOBILE UI DESIGNER - SAMPLE WEAVER Work Phone: Start: 12-13-2021 Lipid panel Milton Monterroso MOBILE UI DESIGNER - SAMPLE WEAVER Work Phone: Start: 01-13-2021 Blood count complete auto&auto difrntl wbc Bren Vu MD Work Phone: Start: 01-13-2021 IMMATURE PLATELET FRACTION Bren Vu MD Work Phone: Plan of Treatment Date Care Activity Detail Author Start: 12-24-2030 DTaP/Tdap/Td vaccine (2 - Td or Tdap) DTaP/Tdap/Td vaccine (2 - Td or Tdap) [facility] Start: 12-13-2026 Lipid panel Lipids [facility] Start: 12-11-2025 Lipid panel [facility] Start: 01-13-2025 Lipid panel Lipid screen [facility]- [place], [place] Start: 12-13-2024 Diabetes screen Diabetes screen [facility] Start: 12-12-2023 Diabetes screen Diabetes screen [facility] Start: 01-13-2023 Diabetes screen Diabetes screen [place], [place] Start: 12-16-2022 Depression Screen Depression Screen [facility] Start: 08-24-2022 End: 08-24-2022 Telemedicine consultation with patient 08/24/2022 Telemedicine Oncology Lashawn Patton MD [address] [place] [address] [facility] Start: 07-07-2022 End: 07-07-2022 Patient encounter procedure 07/07/2022 Appointment Wound Ostomy Garland Morocho DPM [address] [facility] [address] [address] [facility] WOUND CARE Start: 06-16-2022 End: 06-16-2022 Patient encounter procedure 06/16/2022 Office Visit Internal Medicine Milton Monterroso, MOBILE UI DESIGNER - SAMPLE WEAVER [address] [facility], [place] [address] Dante Schwab MD Start: 06-14-2022 Depression Screen Depression Screen [facility] Start: 03-31-2022 Influenza vaccination [facility] Start: 02-24-2022 End: 02-24-2022 Patient encounter procedure 02/24/2022 Appointment Wound Ostomy Garland Morocho DPM [address] [facility] [address] [address] [facility]OUND [facility]ARE Start: 02-16-2022 End: 02-16-2022 Telemedicine consultation with patient 02/16/2022 Telemedicine Oncology Lashawn Patton MD [address] [place] [address] [facility] Start: 02-03-2022 End: 02-03-2022 Patient encounter procedure 02/03/2022 Appointment Wound Ostomy Garland Morocho, DPM [address] [facility] [address] [address] [facility] Start: 12-16-2021 End: 12-16-2021 Patient encounter procedure 12/16/2021 Office Visit Internal Medicine Milton Monterroso APRN - SAMPLE WEAVER [address] [facility] [place] [address] Dante Schwab MD Start: 12-11-2021 Creatinine measurement Creatinine mo [facility] Work Phone: Start: 12-11-2021 Potassium monitoring Potassium monit [facility] Work Phone: Start: 08-11-2021 End: 08-11-2021 ambulatory 08/11/2021 Virtual Visit Oncology Bren Vu MD [address] [place] [address] [facility] Start: 06-17-2021 End: 06-17-2021 Patient encounter procedure 06/17/2021 Office Visit Internal Medicine Milton Monterroso APRN - [address], [facility] [place] [address] [phone] WILFREDO Schwab [facility] Start: 06-14-2021 End: 06-14-2021 Patient encounter procedure 06/14/2021 Office Visit Internal Medicine Milton Monterroso APRN - SAMPLE WEAVER [address] [facility], [facility] [place] [address] Dante Schwab MD Start: 05-27-2021 End: 05-27-2021 Patient encounter procedure 05/27/2021 Appointment Physical Therapy Sonia Jo PT [facility] Start: 05-13-2021 End: 05-13-2021 Patient encounter procedure 05/13/2021 Appointment Physical Therapy Sonia Jo PT [facility] Start: 05-06-2021 End: 05-06-2021 Patient encounter procedure [facility] Therapy Start: 05-03-2021 End: 05-03-2021 Patient encounter procedure 05/03/2021 Appointment Physical Therapy Bianca Lynch PTA [facility] Start: 04-29-2021 End: 04-29-2021 Patient encounter procedure [facility] Therapy Start: 04-26-2021 End: 04-26-2021 Patient encounter procedure 04/26/2021 Appointment Physical Therapy Nighat Gaona PTA [facility] Start: 04-22-2021 End: 04-22-2021 Patient encounter procedure 04/22/2021 Appointment Physical Therapy Bianca Lynch PTA [facility] Start: 04-21-2021 End: 04-21-2021 Patient encounter procedure 04/21/2021 Appointment Physical Therapy Bianca Lynch PTA [facility] Start: 04-19-2021 End: 04-19-2021 Patient encounter procedure 04/19/2021 Appointment [facility] Start: 04-15-2021 End: 04-15-2021 Patient encounter procedure 04/15/2021 Appointment Physical Therapy [facility]onia Jo [facility] Start: 04-12-2021 End: 04-12-2021 Patient encounter procedure [facility] Start: 04-08-2021 End: 04-08-2021 Patient encounter procedure [facility] Therapy Start: 04-06-2021 End: 04-06-2021 Patient encounter procedure 04/06/2021 Appointment Physical Therapy [facility] Start: 04-01-2021 End: 04-01-2021 Patient encounter procedure 04/01/2021 Appointment Physical Therapy [facility] Jo PT [facility] Start: 04-01-2021 Subsequent hospital visit by physician 04/01/2021 Hospital Encounter Physical Therapy Bianca Lynch PTA [facility] Start: 03-31-2021 Influenza vaccination [facility] [employer] Phone: Start: 03-29-2021 End: 03-29-2021 Patient encounter procedure 03/29/2021 Appointment Physical Therapy Thiry, Nighat, TIMERS INSPECTOR [facility] Start: 03-26-2021 End: 03-26-2021 Patient encounter procedure 03/26/2021 Appointment Physical Therapy Bianca Lynch PTA [facility] Start: 03-25-2021 End: 03-25-2021 Patient encounter procedure 03/25/2021 Appointment Physical Therapy Sonia Jo PT [facility] Start: 03-22-2021 End: 03-22-2021 Patient encounter procedure 03/22/2021 Appointment Physical Therapy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 recreational, or sporting activities: Extreme Difficulty or Unable to Perform Activity Getting into or out of the bath: Extreme Difficulty or Unable to Perform Activity Walking between rooms: Quite a Bit of Difficulty Putting on your shoes or socks: Quite a Bit of Difficulty Squatting: Extreme Difficulty or Unable to Perform Activity Lifting an object, like a bag of groceries from the floor: Quite a Bit of Difficulty Performing light activities around your home: Quite a Bit of Difficulty Performing heavy activities around your home: Extreme Difficulty or Unable to Perform Activity Getting into or out of a car: Quite a Bit of Difficulty Walking 2 blocks: Extreme Difficulty or Unable to Perform Activity Walking a mile: Extreme Difficulty or Unable to Perform Activity Going up or down 10 stairs (about 1 flight of stairs): Extreme Difficulty or Unable to Perform Activity Standing for 1 hour: Extreme Difficulty or Unable to Perform Activity Sitting for 1 hour: A Little Bit of Difficulty Running on even ground : Extreme Difficulty or Unable to Perform Activity Running on uneven ground : Extreme Difficulty or Unable to Perform Activity Making sharp turns while running fast : Extreme Difficulty or Unable to Perform Activity Hopping: Extreme Difficulty or Unable to Perform Activity Rolling over in bed: Quite a Bit of Difficulty LEFS Total Score: 10 Assessment Assessment: Pt is a 40 year old male that presents with a history of BLE lymphedema and morbid obesity. Pt has a defined nodule on L LE posterior to his knee that seems to be incapsulated lymph mass. Pt will benefit from skilled PT in order to address these deficits. Prognosis: Fair Decision Making: High Complexity Patient Education Patient Education: Pt educated on her POC and HEP Pt verbalized/demonstrated good understanding: [X] Yes [] No, pt required further clarification. 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 4: Pt will report 50% in pain and discomfort with L LE Patient goals : to get rid of nodule behind his L knee Minutes Tracking: Time In: 1007 Time Out: 1057 Minutes: 50 Timed Code Treatment Minutes: 45 Minutes Sonia Jo PT, DPT 02/11/2021 documented in this encounter [employer] Phone: Evaluation note Diagnosis Thrombocytopenia (HCC) Thrombocytopenia, unspecified Other decreased white blood cell (WBC) count documented in this encounter [employer] Phone: evaluation note* Diagnosis Open wound of left knee, leg, and ankle, initial encounter- Primary Lymphedema Other lymphedema documented in this encounter [employer] Phone: evaluation note* Diagnosis Morbid obesity due to excess calories (HCC) Essential hypertension Unspecified essential hypertension Left hip pain Pain in joint, pelvic region and thigh documented in this encounter [employer] Phone: evaluation note* Diagnosis Bacterial infection- Primary Bacterial infection, unspecified, in conditions classified elsewhere and of unspecified site documented in this encounter [employer] Phone: evaluation note* Diagnosis Elephantiasis nostra verrucosa- Primary Other lymphedema Skin ulcer of left pretibial region with fat layer exposed (HCC) Lymphedema of both lower extremities Stasis dermatitis of both legs Varicose veins of lower extremities with inflammation documented in this encounter [facility] [employer] Phone: Hospital Discharge instructions* Instructions* Barbara Urrutia MD - 12/13/2021 Keep wound clean with soap and water. Mild amount of mupirocin ointment 3 times a day and cover with a loose sterile dressing. Take Bactrim as directed until complete. Up with wound care as soon as possible call today to schedule appointment. Follow-up with primary care provider in 3 to 5 days if symptoms do not resolve. Return immediately for any acute concerns * Attachments The following attachments cannot be sent through Care Everywhere. 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 ACP-Advance Directive ACP-Power of Health Program Director Documents on File Type Date Recorded 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 ACP-Advance Directive ACP-Power of Health Program Director Assessments Diagnosis Fever, unspecified fever cause Body aches Generalized pain Reason for Referral Specialty Diagnoses / Procedures Referred By Heather t Referred To Contact Wound Care / Wound Ostomy Diagnoses Open wound of left knee, leg, and ankle, initial encounter Barbara Urrutia MD [address] [place] [address] [facility] [address] [place] [address] Referral ID Status Reason Start Date Expiration Date V isits Requested Visits Authorized Open Specialty Services Required 12/13/2021 12/13/2022 1 1 Scheduling Instructions [facility] [place], [place] [address], [address] [place] [phone] Additional Source Comments (unrecognized sect ion and content) No Status Records FoundNo Status Records FoundNo Status Records FoundNo Status Records FoundNo Status Records Found INFORMATION SOURCE (unrecogn ized section and content) DATE CREATED AUTHOR 01/10/2020 [facility] DATE CREATED AUTHOR AUTHOR'S ORGANIZ ATION 03/19/2020 [facility] DATE CREATED AUTHOR AUTHOR'S ORGANIZ ATION 11/09/2021 [facility] DATE CREATED AUTHOR AUTHOR'S ORGANIZ ATION 01/21/2024 [facility] DATE CREATED AUTHOR AUTHOR'S ORGANIZ ATION 05/11/2024 [facility] Reason for Visit (unrecogniz ed section and content) Status Reason Specialty Diagnoses / Procedures Referred By Contact Referred To Contact Open Specialty Services Required Physical Medicine and Rehab Diagnoses Leg mass, left Neel Whalen MD [address] [place] [address] Reason Comments Leg Swelling pt states he has a l ump on his left lower leg that popped Reason Comments Wound Check left lower leg Reason Comments Wound Check Left anterior lower leg Ordered Prescriptions (unrec ognized section and content) Prescription Sig Dispensed Refills Start Date End Da te mupirocin (BACTROBAN) 2 % ointment Apply topically 3 times daily. 22 g 0 12/13/2021 12/20/2021 sulfamethoxazole-trimet hoprim (BACTRIM DS) 800-160 MG per tablet Take 1 tablet by mouth 2 times daily for 10 days 20 tablet 0 12/13/2021 12/23/2021 Prescription Sig Dispensed Refills Start Date End Da te sulfamethoxazole-trimetho prim (BACTRIM) 400-80 MG per tabletIndications:Bacteri al infection Take 1 tablet by mouth daily for 10 days 10 tablet 0 01/13/2022 01/23/2022 Care Teams (unrecognized sec tion and content) Tuck Pointer Relationship Specialty Start Date End Date Milton Monterroso MOBILE [employer] DESIGN[employer] [facility] [address] [place] [address] PCP - General Nurse Practitioner Family 12/30/15 Tuck Pointer Relationship Specialty Start Date End Date Milton Monterroso MOBI[employer] DESIGNER [facility] [address] [place] [address] PCP - General Nurse Practitioner Family 12/30/15 Tuck Pointer Relationship Specialty Start Date End Date Milton Monterroso MOBILE UI DESIGNER [facility] [address] [place] [address] PCP - General Nurse Practitioner Family 12/30/15 Tuck Pointer Relationship Specialty Start Date End Date Milton Monterroso MOBILE UI DESIGNER [facility] [address] [place] [address] PCP - General Nurse Practitioner Family 12/30/15 Tuck Pointer Relationship Specialty Start Date End Date Milton Monterroso MOBILE UI DESIGNER [facility] [address] [place] [address] PCP - General Nurse Practitioner Family 12/30/15 FOR RECORDS PERTAINING TO PATIENTS WHO ARE OR HAVE BEEN ENROLLED IN A CHEMICAL DEPENDENCY/SUBSTANCEABUSE PROGRAM, SOME INFORMATION MAY BE OMITTED. This clinical summary was aggregated from multiple sources. Caution should be exercised in using it in the provision of clinical care. This summary normalizes information from multiple sources, and as a consequence, information in this document may materially change the coding, format and clinical context of patient data. In addition, data may be omitted in some cases. CLINICAL DECISIONS SHOULD BE BASED ON THE PRIMARY CLINICAL RECORDS. [employer] [facility]. provides no warranty or guarantee of the accuracy or completeness of information in this document.
[2024-06-19 18:28] VITALS: BP 133/73; PULSE 68; TEMP 37; O2SAT 96; BMI 75.8
--- NOTE | 2024-06-19 18:52 | PC.NURSE ---
Hip to hip measurement is approx 47 inches
[2024-06-19 20:58] VITALS: PULSE 76; O2SAT 96
[2024-06-19] MEDS: OXYCODONE HCL/ACETAMINOPHEN 5MG/325MG 1 TAB PO (21:15)
[2024-06-19] MEDS: TIZANIDINE HCL 4 MG TABLET PO (21:15)
[2024-06-19] MEDS: ENOXAPARIN SODIUM 60 MG/0.6 ML SYRINGE SUBQ (21:15)
[2024-06-19] MEDS: CARVEDILOL 12.5 MG TABLET PO (21:15)
[2024-06-19] MEDS: ACETAMINOPHEN 325 MG TABLET 650 MG PO (21:15)
[2024-06-19] MEDS: KETOROLAC TROMETHAMINE 30 MG/ML VIAL 15 MG IVP (21:16)
[2024-06-19 23:40] VITALS: BP 101/63; PULSE 101; TEMP 36.8; O2SAT 94
[2024-06-20 05:03] VITALS: BP 116/72; PULSE 57; TEMP 36.5; O2SAT 98
[2024-06-20 05:34] LABS: Hematocrit 38.5 % (42.0-54.0); Hemoglobin 13.1 g/dL (14.0-18.0); Mean Corpuscular Volume 91.2 fL (80.0-94.0); Platelet Count 38 10^3/uL (150-450); Red Blood Count 4.22 10^6/uL (4.70-6.10); Red Cell Distribution Width 14.1 % (11.0-15.0); White Blood Count 2.5 10^3/uL (4.0-11.0)
[2024-06-20 05:35] LABS: Estimated Average Glucose 114 mg/dL; Glycohemoglobin A1C 5.6 % (4.5-6.2)
[2024-06-20 05:52] LABS: Anion Gap 10.3; BUN Creatinine Ratio 17.4; Calcium 8.8 mg/dL (8.5-10.1); Carbon Dioxide 28.6 mmol/L (21.0-32.0); Chloride 103 mmol/L (98-107); Chol HDL Ratio 2.6; Cholesterol 110 mg/dL (<=200); Estimated GFR (African America >60 (>=60 mL/min/1.73m^2); Estimated GFR (Non-African Ame >60 (>=60 mL/min/1.73m^2); Glucose 111 mg/dL (74-106); HDL Cholesterol 43 mg/dL (40-60); LDL Cholesterol Calculated 56.4 mg/dL; Potassium 3.9 mmol/L (3.5-5.1); Sodium 138 mmol/L (136-145); Thyroid Stimulating Hormone 0.831 uIU/mL (0.358-3.740); Triglycerides 53 mg/dL (<=150); VLDL CHOLESTEROL 10.6 mg/dL
[2024-06-20 06:06] LABS: Segmented Neut Absolute Manual 1.47 10^3/uL (1.4-6.5)
[2024-06-20 06:07] LABS: Lymphocytes Absolute Manual 0.65 10^3/uL (1.20-3.80); Monocytes Absolute Manual 0.27 10^3/uL (0.30-0.80)
[2024-06-20 08:00] VITALS: BP 137/79; PULSE 58; TEMP 36.6; O2SAT 95
--- NOTE | 2024-06-20 09:26 | SWNOTE1 ---
LAWRENCE called to admissions at [facility], LAWRENCE told they are all in morning meeting and someone will call LAWRENCE back once morning meeting is complete.
--- NOTE | 2024-06-20 09:31 | SWNOTE1 ---
SW faxed over hip to hip measurement and skin assessment to [facility]. LAWRENCE requested they call SW to let know what time on site eval will be completed.
[2024-06-20] MEDS: LISINOPRIL/HYDROCHLOROTHIAZIDE 20-12.5 MG TABLET 1 TAB PO (10:07)
[2024-06-20] MEDS: CARVEDILOL 12.5 MG TABLET PO ×2 (10:08→22:17)
--- NOTE | 2024-06-20 10:42 | SWNOTE1 ---
LAWRENCE spoke to admissions and they have received all updates. She stated the director is in meeting right now and as soon as he is done she will try and see when the person completing the on site is coming. She stated she will call LAWRENCE back.
[2024-06-20] MEDS: OXYCODONE HCL/ACETAMINOPHEN 5MG/325MG 1 TAB PO ×2 (10:47→22:17)
[2024-06-20] MEDS: KETOROLAC TROMETHAMINE 30 MG/ML VIAL 15 MG IVP (10:47)
[2024-06-20] MEDS: ACETAMINOPHEN 325 MG TABLET 650 MG PO ×2 (10:48→22:17)
[2024-06-20] MEDS: TIZANIDINE HCL 4 MG TABLET PO ×2 (10:48→22:17)
--- NOTE | 2024-06-20 11:26 | SWNOTE1 ---
LAWRENCE received a call from Barby in admissions and someone will be here within the hour to complete on site eval. LAWRENCE let nurse and pt know. Pt stated he did work with therapy and was able to sit on edge of bed. LAWRENCE to send therapy notes to admissions at [facility].
--- NOTE | 2024-06-20 11:31 | CM.NOTE ---
Rounds made with Dr. Rubalcava, discussed plan of care with pt. Awaiting Ede Brian to send product support sales representative for evaluation, discharge planning for skilled.
[2024-06-20 12:00] VITALS: BP 91/57; PULSE 58; TEMP 36.6; O2SAT 92
[2024-06-20] MEDS: METHYLPREDNISOLONE SOD SUCC PF 40 MG/ML VIAL IVP ×2 (12:08→18:02)
--- NOTE | 2024-06-20 13:03 | SWNOTE1 ---
LAWRENCE did send PT/OT and H&P to [facility]. LAWRENCE spoke with pt after he spoke with 2 people during on site visit from [facility]. He stated they asked some questions and he asked some questions and they told him once they got back to facility they wll compile all the information and send to pt's insurance. He stated they told him it would be 1-2 days. LAWRENCE to call and check in this afternoon with [facility] to make sure they can accept and will start precert.
--- NOTE | 2024-06-20 13:33 | SWNOTE1 ---
LAWRENCE called and spoke with Barby in admissions and she has not seen the 2 girls that completed on site yet and has not spoke to them. She has been on the phone with pt's insurance for the past hour. She stated she has to go handle a different situation and then she will call LAWRENCE back to give her an update.
--- NOTE | 2024-06-20 15:25 | SWNOTE1 ---
LAWRENCE spoke to Barby in admissions at [facility] and she has submitted precert and she does not need any further information at this time. She stated she requested for approval by tomorrow, but unsure that will happen. At this time it is in hands of insruance and we have to wait for precert approval. LAWRENCE to send updates in morning to [facility].
--- NOTE | 2024-06-20 15:59 | SWNOTE1 ---
SW stopped in room to update pt and let him know that precert has been started and we now have to wait for insurance to approve. Pt's mother and aunt in room as well.
[2024-06-20 16:00] VITALS: BP 137/81; PULSE 64; TEMP 36.6; O2SAT 92
[2024-06-20 19:26] VITALS: BP 173/79; PULSE 66; TEMP 36.8; O2SAT 95
[2024-06-20 20:11] VITALS: PULSE 76
[2024-06-21] VITALS: BP 99/61; TEMP 36.6; O2SAT 92
[2024-06-21] MEDS: METHYLPREDNISOLONE SOD SUCC PF 40 MG/ML VIAL IVP ×3 (00:48→13:36)
[2024-06-21 08:00] VITALS: BP 124/75; PULSE 58; TEMP 36.6; O2SAT 94
--- NOTE | 2024-06-21 08:20 | P.PN_ITS ---
Progress Note: Subjective Subjective Interval history: Patient says he had a good nights rest on his CPAP. His back pain has been controlled with the IV steroids. Was able to turn more in bed without pain. He also had a bowel movement yesterday without pain. No other issues or complaints. Exam Narrative Exam Narrative: General: Patient is alert, and oriented to person, place and time with normal affect, poor hygiene, morbid obesity Skin: stasis dermatitis with lymphedema, left leg, inner thigh has some erythema but no open wounds visible Head: atraumatic, acephalic Eyes: PERRLA, no nystagmus present, conjunctiva clear, no scleral icterus Ears: normal gross auditory acuity Neck: no masses palpated, normal thyroid, no JVD or audible carotid bruits Heart: Normal rate and rhythm, no murmurs/rubs/gallops Lungs: no audible wheezes, crackles and normal breath sounds all lung richardson Abdomen: Normal audible bowel sounds, no distension, No palpable masses, no organomegaly, no rebound/guarding/ or rigidity, central obesity, large pannus Musculoskeletal: lymphedema/ swelling bilateral lower extremities Neuro: CN II-X grossly intact Constitutional Vital Signs, click to edit/add: Last Vital Signs Temp 97.9 F 06/21/24 00:00 Pulse 76 06/20/24 20:11 Resp 18 06/21/24 00:00 BP 99/61 06/21/24 00:00 Pulse Ox 92 L 06/21/24 00:00 O2 Del Method Room Air 06/21/24 00:00 Progress Note: A&P Assessment and Plan (1) Sciatica: Assessment and Plan: improving on IV solumedrol, will d/c on medrol dosepak, and Narcotic for short duration, muscle relaxer Qualifiers: Laterality: right Qualified Code(s): M54.31 - Sciatica, right side (2) Morbid obesity due to excess calories: Assessment and Plan: pt/ot evaluation, skin assessment, hopeful placement to bariatric facility as patient is medically stable for placement (3) Hypertension: Assessment and Plan: medically stable on the coreg and lisinopril/hctz Qualifiers: Hypertension type: primary hypertension Qualified Code(s): I10 - Essential (primary) hypertension (4) Sleep apnea: Assessment and Plan: continue home cpap Qualifiers: Sleep apnea type: unspecified type Qualified Code(s): G47.30 - Sleep apnea, unspecified (5) Autoimmune thrombocytopenia: Assessment and Plan: follow up with hematology outpatient, Platelets 38 Plan Patient is a full code Patient's back pain has improved. Patient is medically stable for transfer/discharge to intermediate facility Urinary Catheter Management Urinary Catheter Management Pure Wick: Cath placed during this visit: no
[2024-06-21 09:04] LABS: Hematocrit 41.8 % (42.0-54.0); Hemoglobin 14.3 g/dL (14.0-18.0); Mean Corpuscular HGB Conc 34.2 g/dL (29.9-35.2); Mean Corpuscular Hemoglobin 30.7 pg (25.9-34.0); Mean Corpuscular Volume 89.7 fL (80.0-94.0); Mean Platelet Volume 11.9 fL (9.5-13.5); Platelet Count 38 10^3/uL (150-450); Red Blood Count 4.66 10^6/uL (4.70-6.10); Red Cell Distribution Width 13.5 % (11.0-15.0); White Blood Count 4.7 10^3/uL (4.0-11.0)
[2024-06-21 09:18] LABS: Alanine Aminotransferase 20 U/L (16-63); Albumin Globulin Ratio 0.7; Albumin Level 2.8 g/dL (3.4-5.0); Alkaline Phosphatase 59 U/L (46-116); Anion Gap 15.7; Aspartate Amino Transferase 19 U/L (15-37); BUN Creatinine Ratio 17.2; Bilirubin Total 1.1 mg/dL (0.2-1.0); Calcium 8.7 mg/dL (8.5-10.1); Carbon Dioxide 23.7 mmol/L (21.0-32.0); Chloride 101 mmol/L (98-107); Estimated GFR (African America >60 (>=60 mL/min/1.73m^2); Estimated GFR (Non-African Ame >60 (>=60 mL/min/1.73m^2); Glucose 155 mg/dL (74-106); Potassium 4.4 mmol/L (3.5-5.1); Sodium 136 mmol/L (136-145); Total Protein 6.8 g/dL (6.4-8.2)
[2024-06-21 09:29] LABS: Lymphocytes Absolute Manual 0.47 10^3/uL (1.20-3.80); Segmented Neut Absolute Manual 4.23 10^3/uL (1.4-6.5)
--- NOTE | 2024-06-21 09:38 | SWNOTE1 ---
LAWRENCE received a call from Barby at [facility]. She received a call from pt's insurance requesting physician documentation stating that pt is medically stable for discharge to SNF. LAWRENCE let doctor know.
--- NOTE | 2024-06-21 09:54 | CM.NOTE ---
Rounds made with Dr. Rubalcava. Dr. Rubalcava discussed plan of care. Await precert for [facility].
--- NOTE | 2024-06-21 10:01 | SWNOTE1 ---
Physician documentation complete. SW faxed and emailed securely to admissions at [facility].
--- NOTE | 2024-06-21 11:08 | PT.DAILY ---
Physical Therapy Daily Note PT Daily Note/Assess Start: 06/21/24 11:01 Freq: Status: Active Protocol: Document 06/21/24 11:02 EFEDANIELADAVIN (Rec: 06/21/24 11:07 LOVE [id number]) Physical Therapy Daily Note/Assessment Time In/Time Out Time In 10:38 Time Out 10:50 Pain In Pain N/A Pain Out Pain N/A Subjective Subjective Supine upon arrival. Just finished having a bowel movement and getting cleaned up by nursing. Reports his back pain is about 5/10 right now, just getting settled. Has not had pain medication today . Agreed to bed level ex as he does not think he can tolerate sitting EOB at this time. Therapeutic Exercise Time Therapeutic Exercise Minutes (minutes) 8 Therapeutic Exercise Units 1 Therapeutic Exercise Treatment Therapeutic Exercise Treatment Supine R LE ROM ex 10x ea. Glute sets, quad sets, and AP bilat 10x ea. Total Physical Therapy Time Total Therapy Minutes 8 Total Physical Therapy Units 1 Summary Daily Note Summary R LE ROM pain free this morning. Back pain down to 3/ 10 upon completion.
[2024-06-21] MEDS: LISINOPRIL/HYDROCHLOROTHIAZIDE 20-12.5 MG TABLET 1 TAB PO (11:26)
[2024-06-21] MEDS: CARVEDILOL 12.5 MG TABLET PO (11:26)
--- NOTE | 2024-06-21 11:28 | SWNOTE1 ---
LAWRENCE spoke to Barby at [facility] and she received all the updates. LAWRENCE did go online and complete PASR and sent over to Barby, she received this as well and all updates have been sent to insurance. LAWRENCE did ask if no approval today, could it happen over the weekend? Barby stated yes it can. SW to touch base with her at end of day if no approval happens.
[2024-06-21] MEDS: ACETAMINOPHEN 325 MG TABLET 650 MG PO (11:29)
--- NOTE | 2024-06-21 11:30 | SWNOTE1 ---
LAWRENCE faxed over PT note from today to [facility].
--- NOTE | 2024-06-21 13:22 | SWNOTE1 ---
SW received a call from [employer] and pt is approved to go. SW notified nurse, doctor, and patient. SW working on transport.
--- NOTE | 2024-06-21 13:29 | SWNOTE1 ---
[facility] will be here at 4:30 to transport. SW notified doctor, pt, and [facility]. Pt was on phone with family and notified. SW already completed PASR. SW filled out paperwork for [facility] and took packet to the floor.
--- NOTE | 2024-06-21 13:40 | SWNOTE1 ---
Pt is going skilled to [facility].
--- NOTE | 2024-06-21 13:45 | P.DS_ITS ---
DS: Providers Provider Date of admission: 06/19/24 18:07 Primary care physician: Non-Staff PhysicianMD Attending physician on admission: Siomara Rubalcava Consults: 06/19/24 17:00 Occupational Therapy Eval and Treat Routine Reason for consultation: back pain, cannot move Has provider been notified: No Physical Therapy Eval and Treat Routine Reason for consultation: back pain, cannot move Discharging clinician: Siomara Rubalcava DS: Diagnosis Discharge Diagnosis (1) Sciatica: Qualifiers: Laterality: right Qualified Code(s): M54.31 - Sciatica, right side (2) Morbid obesity due to excess calories: (3) Hypertension: Qualifiers: Hypertension type: primary hypertension Qualified Code(s): I10 - Essential (primary) hypertension (4) Sleep apnea: Qualifiers: Sleep apnea type: unspecified type Qualified Code(s): G47.30 - Sleep apnea, unspecified (5) Autoimmune thrombocytopenia: DS: Summary Hospital Course Hospital Course: Please see progress note dated 06/21/24, Patient will be discharged to [facility]. Hoping they can get him set up for outpatient imaging that would accommodate his size. Stop Solumedrol, place on 6 day medrol pack starting tomorrow, PRN oxycodone for severe back pain. Follow up with PCP and Hematology once discharged from facility. Status at Discharge Functional status at discharge: bed bound Overall status at discharge: patient is progressing back to baseline Time Spent with Patient Time attestation: Total time spent providing and/or coordinating discharge services: Time spent: greater than 30 minutes Exam Narrative Exam Narrative: no change from exam on progress note dated 06/21/24 Constitutional Vital Signs, click to edit/add: Last Vital Signs Temp 97.9 F 06/21/24 08:00 Pulse 58 L 06/21/24 08:00 Resp 17 06/21/24 08:00 BP 124/75 06/21/24 08:00 Pulse Ox 94 L 06/21/24 08:00 O2 Del Method Room Air 06/21/24 08:00 DS: Data Data Completed and Pending Labs on day of discharge: Labs from last 24 hours 06/21/24 08:42 WBC 4.7 RBC 4.66 L Hgb 14.3 Hct 41.8 L MCV 89.7 MCH 30.7 MCHC 34.2 RDW 13.5 Plt Count 38 L MPV 11.9 Seg Neuts % (Manual) 90.0 H Lymphocytes % (Manual) 10.0 L Monocytes % (Manual) 0.0 L Eosinophils % (Manual) 0.0 L Basophils % (Manual) 0.0 L Neutrophils # (Manual) 4.23 Lymphocytes # (Manual) 0.47 L Monocytes # (Manual) 0.00 L Eosinophils # (Manual) 0.00 Basophils # (Manual) 0.00 Sodium 136 Potassium 4.4 Chloride 101 Carbon Dioxide 23.7 Anion Gap 15.7 BUN 16.0 Creatinine 0.93 Est GFR ( Amer) >60 Est GFR (Non-Af Amer) >60 BUN/Creatinine Ratio 17.2 Glucose 155 H Calcium 8.7 Total Bilirubin 1.1 H AST 19 ALT 20 Alkaline Phosphatase 59 Total Protein 6.8 Albumin 2.8 L Globulin 4.0 Albumin/Globulin Ratio 0.7 Discharge Plan Discharge Disposition: Xfer SNF Condition: Fair Discharge Medications: New oxycodone-acetaminophen 5-325 mg Tablet 1 tab PO Q6H PRN (Reason: Pain) 2 Days Qty: 8 0RF methylprednisolone [Medrol (Ovi)] 4 mg tablets,dose pack 4 mg PO DAILY 6 Days Qty: 21 0RF Rx Instructions: start 06/22/24, take as directed per packaging instructions Continued tizanidine 4 mg tablet 4 mg PO Q12H PRN (Reason: spasms) lisinopril-hydrochlorothiazide 20-12.5 mg tablet 1 tab PO DAILY carvedilol 6.25 mg tablet 12.5 mg PO BID Held celecoxib [Celebrex] 100 mg capsule 100 mg PO DAILY Hold Instructions: Resume on 06/28/24. prednisone 10 mg tablet 10 mg PO DAILY Hold Instructions: Resume on 06/28/24. Print Language: Faroese Forms: Portal Instructions Discharge location: [facility]
--- NOTE | 2024-06-21 13:47 | SWNOTE1 ---
LAWRENCE faxed over dc med rec to [facility] and attached to email. LAWRENCE called [facility] with time, but did not speak with admissions as she did not answer. LAWRENCE spoke with accredited legal secretary who confirmed she will let admissions know.
[2024-06-21 15:13] VITALS: BP 141/75; PULSE 60; TEMP 36.4; O2SAT 96
[2024-06-21] MEDS: OXYCODONE HCL/ACETAMINOPHEN 5MG/325MG 1 TAB PO (16:20)
== END 2024-06-21 16:47 ==
LOC: ER 17:12 → MS 18:22
PROVIDERS: Admitting Provider Family Medicine; Emergency Provider Emergency Medicine; Visit Provider Family Medicine
DX: M54.31 Sciatica, right side (principal); E66.01 Morbid (severe) obesity due to excess calories; I89.0 Lymphedema, not elsewhere classified; Z87.891 Personal history of nicotine dependence; I10 Essential (primary) hypertension; D69.3 Immune thrombocytopenic purpura; Z79.899 Other long term (current) drug therapy; G47.30 Sleep apnea, unspecified; Z68.45 Body mass index [BMI] 70 or greater, adult
CPT/HCPCS: 36415; 80048; 80053; 80061; 81001; 83036; 84443; 85007; 85025; 85027; 96372; 96374; 96375; 96376; 97110; 97162; 97165; 97530; 99285; G0378; J1650; J1885; J2270; J2919

== ENCOUNTER 2025-03-03 13:46 | Outpatient (OUT) | payer OTHER, SELFPAY ==
--- NOTE | 2025-03-03 14:04 | CA_ITS ---
Patient Name: AMENA LAYTON MR#: [id number] : 1980 Exam Date: 03/03/2025 Ordering Doctor: NON-STAFF PHYSICIAN ECHOCARDIOGRAM REPORT PROCEDURE: CA ECHO W/ CON INDICATIONS: Shortness of breath COMPARISON: None. DESCRIPTION: COMPLETE ECHOCARDIOGRAM Real-time transthoracic echocardiography with 2D, M-mode, spectral and color flow Doppler performed. QUALITY: Lumason contrast was administered due to suboptimal imaging for left ventricular opacification to improve delineation of endocardial boarders. BP 140/82, 80 inches, 691lbs. LEFT VENTRICLE: Severe dilatation. Moderate to severe eccentric left ventricular hypertrophy. Systolic function appears to be at the lower limits of normal. LV EF: Lower limits of normal left ventricular ejection fraction, (50-55%). DIASTOLIC: Diastolic function is indeterminate. ATRIAL SEPTUM: LEFT ATRIUM: Mild dilatation. RIGHT ATRIUM: Mild dilatation. RIGHT VENTRICLE: Mild dilatation. Normal right ventricular systolic function. TRICUSPID VALVE: Normal mobility and thickness. No stenosis with trivial regurgitation. Unable to assess right-sided pressures due to lack of measurable tricuspid regurgitation. MITRAL VALVE: Normal mobility and thickness. No evidence of mitral valve stenosis. There is no mitral annular calcification. Trivial mitral regurgitation. AORTIC VALVE: Normal trileaflet appearance. No visible sclerosis. Normal leaflet mobility. No evidence of aortic valve stenosis. No aortic regurgitation. AORTIC ROOT: Normal diameter and appearance, measuring 3.9 cm. The ascending aorta is normal in size, measures 3.6 cm. PULMONIC VALVE: Not well visualized. No stenosis. No regurgitation. PERICARDIUM: No evidence of pericardial effusion. IVC: Severe dilatation. Measuring 4.1 cm with no collapse. PLEURA: CONCLUSION: 1. Moderate to severe eccentric left ventricular hypertrophy with low normal systolic function. LVEF is estimated at 50 to 55%. 2. Mildly dilated right ventricle with normal systolic function. 3. Mild biatrial dilatation. 4. No significant valvular dysfunction. 5. Unable to assess right-sided pressures due to lack of measurable tricuspid regurgitation. 6. Severely dilated inferior vena cava measuring 4.1 cm. Adult Echocardiography Procedure Report Left Ventricle LVEDD (3.7 - 5.6 cm): 7.22 cm LVESD (2.2 - 4.0 cm): 4.93 cm LVIVS thickness (0.6 - 1.2 cm): 1.09 cm LVPW thickness (0.5 - 1.0 cm): 1.28 cm e': 0.16 m/s E - e': 5.36 LVOT Max Gradient: 5.61 mm[Hg] LVOT Area (cm2): 1.18 m/s Peak Velocity (LVOT): 1.18 m/s Mean Velocity (LVOT): 0.81 m/s LVOT Diameter 2.41 cm Left Ventricular Ejection Fraction: 50-55% Left Atrium LA Volume Index (2D A2C): 38.98 ml/m2 Left Atrium Systolic Dimension: 5.39 cm Mitral Valve MV E to A Ratio: 1.30 Mitral Valve A-Wave Peak Velocity: 0.64 m/s Mitral Valve E-Wave Peak Velocity: 0.83 m/s Right Ventricle RV Internal Diastolic Dimension: 5.48 cm Aorta AO Root Diam: 3.87 cm Ascending Ao Diam: 3.63 cm Aortic Valve AoV Area (Peak Yaya): 3.32 cm2, 3.32 cm2 AoV Area (VTI): 3.27 cm2, 3.27 cm2 Peak Velocity(Antegrade Flow): 1.63 m/s Peak Gradient(Antegrade Flow): 10.57 mm[Hg] Mean Velocity(Antegrade Flow): 1.23 m/s Mean Gradient(Antegrade Flow): 6.67 mm[Hg] Velocity Time Integral: 38.97 cm Tricuspid Valve Peak Velocity (Regurgitant Flow): Pulmonic Valve Mean Gradient: 2.48 mm[Hg] Mean Velocity: 0.73 m/s Peak Velocity: 1.07 m/s, 1.39 m/s Peak Gradient: 7.70 mm[Hg], 4.60 mm[Hg] Right Atrium Right Atrium Systolic Pressure: 158.03 ml, 158.03 ml Dictated by: Aravind Goyal M.D. on 03/03/2025 at 19:10 Approved by: Aravind Goyal M.D. on 03/03/2025 at 19:18
== END 2025-03-03 13:47 | disposition home or self-care (01) ==
DX: R06.02 Shortness of breath (principal)
CPT/HCPCS: C8929